=== PATIENT | female | born 1945 | race Caucasian/White ===

== ENCOUNTER → 2017-06-06 08:49 | Outpatient (CLI) | payer MEDICARE, OTHER, SELFPAY ==
--- NOTE | 2017-06-06 08:53 | BI_ITS ---
MAMMOGRAPHY - BILATERAL SCREENING REASON FOR EXAM: Female, 71 years old. Routine annual screening examination. PERTINENT HISTORY: FAM HX OF MOTHER @ AGE 52 TECHNIQUE: Digital bilateral breast jasmina (3D mammographic acquisition) in the CC and MLO projections. 2-D mediolateral oblique (MLO) and craniocaudad (CC) views of both breasts were obtained. CAD: Full Field Digital Mammography with Computer Added Detection was performed. COMPARISON: Apr 14 2016 9:40am. FINDINGS: Breast Composition: The breasts are heterogeneously dense, which may obscure small masses. There are no dominant masses or suspicious calcifications. No other significant abnormalities are identified. BI/SCREENING MAMM (CAD), BILAT IMPRESSION: Stable bilateral screening mammogram. Yearly follow-up mammogram recommended. (A) ASSESSMENT CATEGORY: BIRADS Category 2: Benign. A letter regarding these results will be sent to the patient by the facility within 30 days. Approximately 10% of breast cancers are not detected by mammography. A normal mammogram should not delay biopsy of a clinically suspicious abnormality. [id number] Electronically Signed: Maisha Dumont MD at 16:28 EDT Tel , Service support ,
--- NOTE | 2017-06-06 08:55 | BD_ITS ---
STUDY: DUAL ENERGY X-RAY ABSORPTIOMETRY / DXA REASON FOR EXAM: Female, 71 years old. Postmenopausal female. History of hormone therapy. Patient taking Boniva. TECHNIQUE: Bone Mineral Density (BMD) measurements of lumbar spine and bilateral hips were obtained. COMPARISON: None. FINDINGS: Lumbar Spine (L1-L4): g/cm2 (1.112) / T-score (-0.6) / Z-score (1.1) Findings are suggestive of normal bone density with a low fracture risk. Left Femur Total: g/cm2 (0.784) / T-score (-1.8) / Z-score (-0.3) Left Femoral Neck: g/cm2 (0.722) / T-score (-2.3) / Z-score (-0.6) Right Femur Total: g/cm2 (0.715) / T-score (-2.3) / Z-score (-0.8) Right Femoral Neck: g/cm2 (0.710) / T-score (-2.4) / Z-score (-0.7) BD/Dexa Bone Density Study IMPRESSION: The patient is considered osteopenic as outlined below according to World [employer] Organization (WHO) criteria with a moderate fracture risk. Reference Information: The T-score is the number of standard deviations above or below the standard which is normal for young adults at their peak bone mineral density. The World Health Organization (WHO) interprets the T-scores as follows: Above -1 Normal bone density Between -1 and -2.5 Osteopenia Equal to / or below -2.5 Osteoporosis As a practical clinical guideline, osteopenia may be graded as follows: Mild -1 through -1.5 Moderate -1.6 through -2.0 Severe -2.1 through -2.4 The Z-score is the number of standard deviations above or below age-matched controls. A Z-score of less than -1.5 would be considered abnormal. References: 1. NIH Osteoporosis and Related Bone Diseases http://www.osteo.org 2. International Society for Clinical Densitometry http://www.iscd.org 3. National Osteoporosis Foundation http://www.nof.org Electronically Signed: Ignacio Phelps DO at 9:00 EDT Tel [phone], Service support ,
== END ==
PROVIDERS: Family Provider Family Medicine; PCP Family Medicine; Visit Provider Family Medicine
DX: Z12.31 Encounter for screening mammogram for malignant neoplasm of breast (principal); M81.0 Age-related osteoporosis without current pathological fracture
CPT/HCPCS: 77063; 77067; 77080

== ENCOUNTER → 2018-06-12 07:39 | Outpatient (CLI) | payer MEDICARE, OTHER, SELFPAY ==
--- NOTE | 2018-06-12 07:49 | BI_ITS ---
MAMMOGRAPHY - BILATERAL SCREENING REASON FOR EXAM: Female, 72 years old. Routine annual screening examination. PERTINENT HISTORY: Mother with breast cancer. Aunt with breast cancer. TECHNIQUE: Digital bilateral breast jasmina (3D mammographic acquisition) in the CC and MLO projections. 2-D mediolateral oblique (MLO) and craniocaudad (CC) views of both breasts were obtained. CAD: Full Field Digital Mammography with Computer Added Detection was performed. COMPARISON: Comparison is made with prior study dated June 06, 2017 and April 14, 2016. FINDINGS: Breast Composition: The breasts are heterogeneously dense, which may obscure small masses. There are no dominant masses or suspicious calcifications. No other significant abnormalities are identified. There has been no significant change since the prior study. BI/SCREENING MAMM (CAD), BILAT IMPRESSION: Stable bilateral screening mammogram. Yearly follow-up mammogram recommended. (A) ASSESSMENT CATEGORY: BIRADS Category 1: Negative. A letter regarding these results will be sent to the patient by the facility within 30 days. Approximately 10% of breast cancers are not detected by mammography. A normal mammogram should not delay biopsy of a clinically suspicious abnormality. [id number] Electronically Signed: Teddy Tolbert, at 8:50 EDT , Service support ,
== END ==
PROVIDERS: Family Provider Family Medicine; PCP Family Medicine; Referring Provider Family Medicine; Visit Provider Family Medicine
DX: Z12.31 Encounter for screening mammogram for malignant neoplasm of breast (principal)
CPT/HCPCS: 77063; 77067

== ENCOUNTER → 2019-06-16 13:03 | Outpatient (CLI) | payer MEDICARE, OTHER, SELFPAY ==
--- NOTE | 2019-06-16 13:08 | BI_ITS ---
MAMMOGRAPHY - BILATERAL SCREENING REASON FOR EXAM: Female, 73 years old. Routine annual screening examination. PERTINENT HISTORY: Mother with breast cancer. Aunt with breast cancer. TECHNIQUE: Digital bilateral breast german (3D mammographic acquisition) in the CC and MLO projections. 2-D mediolateral oblique (MLO) and craniocaudad (CC) views of both breasts were obtained. CAD: Full Field Digital Mammography with Computer Added Detection was performed. COMPARISON: Comparison is made with prior study dated June 12, 2018 and June 06, 2017. FINDINGS: Breast Composition: The breasts are heterogeneously dense, which may obscure small masses. There are no dominant masses or suspicious calcifications. No other significant abnormalities are identified. There has been no significant change since the prior study. BI/SCREEN MAMM (CAD) W/GERMAN BILAT IMPRESSION: Stable bilateral screening mammogram. Yearly follow-up mammogram recommended. (A) ASSESSMENT CATEGORY: BIRADS Category 1: Negative. A letter regarding these results will be sent to the patient by the facility within 30 days. Approximately 10% of breast cancers are not detected by mammography. A normal mammogram should not delay biopsy of a clinically suspicious abnormality. [id number] Electronically Signed: Teddy Tolbert, at 13:52 EDT , Service support ,
== END ==
PROVIDERS: PCP Family Medicine; Referring Provider Family Medicine; Visit Provider Family Medicine
DX: Z12.31 Encounter for screening mammogram for malignant neoplasm of breast (principal)
CPT/HCPCS: 77063; 77067

== ENCOUNTER → 2020-06-17 09:49 | Outpatient (CLI) | payer MEDICARE, OTHER, SELFPAY ==
--- NOTE | 2020-06-17 09:55 | BI_ITS ---
MAMMOGRAPHY - BILATERAL SCREENING REASON FOR EXAM: Female, 74 years old. Routine annual screening examination. PERTINENT HISTORY: Mother with breast cancer. Aunt with breast cancer. TECHNIQUE: Digital bilateral breast german (3D mammographic acquisition) in the CC and MLO projections. 2-D mediolateral oblique (MLO) and craniocaudad (CC) views of both breasts were obtained. CAD: Full Field Digital Mammography with Computer Added Detection was performed. COMPARISON: Comparison is made with prior study dated 06/16/2019 and 06/12/2018. FINDINGS: Breast Composition: The breasts are heterogeneously dense, which may obscure small masses. There are no dominant masses or suspicious calcifications. No other significant abnormalities are identified. There has been no significant change since the prior study. BI/SCRN MAMM (CAD)W/GERMAN BILAT IMPRESSION: Stable bilateral screening mammogram. Yearly follow-up mammogram recommended. (A) ASSESSMENT CATEGORY: BIRADS Category 1: Negative. A letter regarding these results will be sent to the patient by the facility within 30 days. Approximately 10% of breast cancers are not detected by mammography. A normal mammogram should not delay biopsy of a clinically suspicious abnormality. [id number] Electronically Signed: Teddy Tolbert MD at 10:39 EDT , Service support ,
== END ==
PROVIDERS: PCP Family Medicine; Referring Provider Family Medicine; Visit Provider Family Medicine
DX: Z12.31 Encounter for screening mammogram for malignant neoplasm of breast (principal); Z80.3 Family history of malignant neoplasm of breast
CPT/HCPCS: 77063; 77067

== ENCOUNTER → 2021-07-25 | Outpatient (CLI) | payer MEDICARE, OTHER, SELFPAY ==
--- NOTE | 2021-07-25 09:08 | BI_ITS ---
MAMMOGRAPHY - BILATERAL SCREENING REASON FOR EXAM: Female, 75 years old. Routine annual screening examination. PERTINENT HISTORY: Mother with breast cancer. Aunt with breast cancer. TECHNIQUE: Digital bilateral breast german (3D mammographic acquisition) in the CC and MLO projections. 2-D mediolateral oblique (MLO) and craniocaudad (CC) views of both breasts were obtained. CAD: Full Field Digital Mammography with Computer Added Detection was performed. COMPARISON: Screening mammogram from 06/17/2020, 06/16/2019, 06/12/2018, 06/06/2017. FINDINGS: Breast Composition: The breasts are heterogeneously dense, which may obscure small masses. There are no dominant masses or suspicious calcifications. No other significant abnormalities are identified. There has been no significant change since the prior study. BI/SCRN MAMM (CAD)W/GERMAN BILAT IMPRESSION: Stable bilateral screening mammogram. Yearly follow-up mammogram recommended. (A) ASSESSMENT CATEGORY: BIRADS Category 1: Negative. A letter regarding these results will be sent to the patient by the facility within 30 days. Approximately 10% of breast cancers are not detected by mammography. A normal mammogram should not delay biopsy of a clinically suspicious abnormality. [id number] Electronically Signed: Benja Grimm, at 11:11 EDT ,
== END | disposition home or self-care (01) ==
PROVIDERS: PCP Family Medicine; Visit Provider Family Medicine
DX: Z12.31 Encounter for screening mammogram for malignant neoplasm of breast (principal)
CPT/HCPCS: 77063; 77067

== ENCOUNTER → 2022-08-09 | Outpatient (CLI) | payer MEDICARE, OTHER, SELFPAY ==
--- NOTE | 2022-08-09 10:46 | BI_ITS ---
MAMMOGRAPHY - BILATERAL SCREENING REASON FOR EXAM: Female, 76 years old. Routine annual screening examination. PERTINENT HISTORY: Mother with breast cancer. Aunt with breast cancer. TECHNIQUE: Digital bilateral breast german (3D mammographic acquisition) in the CC and MLO projections. 2-D mediolateral oblique (MLO) and craniocaudad (CC) views of both breasts were obtained. CAD: Full Field Digital Mammography with Computer Added Detection was performed. COMPARISON: Comparison is made with prior study dated July 25, 2021 and June 17, 2020. FINDINGS: Breast Composition: The breasts are heterogeneously dense, which may obscure small masses. There are no dominant masses or suspicious calcifications. No other significant abnormalities are identified. There has been no significant change since the prior study. BI/SCRN MAMM (CAD)W/GERMAN BILAT IMPRESSION: Stable bilateral screening mammogram. Yearly follow-up mammogram recommended. (A) ASSESSMENT CATEGORY: BIRADS Category 1: Negative. A letter regarding these results will be sent to the patient by the facility within 30 days. Approximately 10% of breast cancers are not detected by mammography. A normal mammogram should not delay biopsy of a clinically suspicious abnormality. [id number] Electronically Signed: Teddy Tolbert MD at 11:27 EDT ,
== END | disposition home or self-care (01) ==
LOC: OPBI 10:44
PROVIDERS: PCP Registered Nurse; Referring Provider Registered Nurse; Visit Provider Registered Nurse
DX: Z12.31 Encounter for screening mammogram for malignant neoplasm of breast (principal)
CPT/HCPCS: 77063; 77067

== ENCOUNTER → 2023-09-06 | Outpatient (CLI) | payer MEDICARE, OTHER, SELFPAY ==
--- NOTE | 2023-09-06 09:09 | BI_ITS ---
MAMMOGRAPHY - BILATERAL SCREENING REASON FOR EXAM: Female, 77 years old. Routine annual screening examination. PERTINENT HISTORY: Mother with breast cancer. Aunt with breast cancer. TECHNIQUE: Digital bilateral breast german (3D mammographic acquisition) in the CC and MLO projections. 2-D mediolateral oblique (MLO) and craniocaudad (CC) views of both breasts were obtained. CAD: Full Field Digital Mammography with Computer Added Detection was performed. COMPARISON: Comparison is made with prior study dated August 09, 2022 and July 25, 2021. FINDINGS: Breast Composition: The breasts are heterogeneously dense, which may obscure small masses. There are no dominant masses or suspicious calcifications. No other significant abnormalities are identified. There has been no significant change since the prior study. BI/SCRN MAMM (CAD)W/GERMAN BILAT IMPRESSION: Stable bilateral screening mammogram. Yearly follow-up mammogram recommended. (A) ASSESSMENT CATEGORY: BIRADS Category 1: Negative. A letter regarding these results will be sent to the patient by the facility within 30 days. Approximately 10% of breast cancers are not detected by mammography. A normal mammogram should not delay biopsy of a clinically suspicious abnormality. [id number] Electronically Signed: Teddy Tolbert MD at 9:54 EDT ,
== END | disposition home or self-care (01) ==
PROVIDERS: PCP Registered Nurse; Referring Provider Registered Nurse; Visit Provider Registered Nurse
DX: Z12.31 Encounter for screening mammogram for malignant neoplasm of breast (principal); Z80.3 Family history of malignant neoplasm of breast
CPT/HCPCS: 77063; 77067

== ENCOUNTER → 2024-04-02 | Outpatient (CLI) | payer MEDICARE, OTHER, SELFPAY ==
[2024-04-02 13:29] LABS: CRP < 3.00 mg/L (0.0-3.0)
[2024-04-04 04:07] LABS: Endomysial Antibody IgA Negative (Negative); Immunoglobulin A 211 mg/dL (64-422); t-Transglutaminase IgA <2 U/mL (0-3)
== END | disposition home or self-care (01) ==
LOC: MTLAB 10:32
PROVIDERS: PCP Registered Nurse; Referring Provider Internal Medicine Gastroenterology; Visit Provider Internal Medicine Gastroenterology
DX: R19.7 Diarrhea, unspecified (principal)
CPT/HCPCS: 36415; 82784; 83516; 86140; 86255

== ENCOUNTER → 2024-04-07 | Outpatient (CLI) | payer MEDICARE, OTHER, SELFPAY ==
[2024-04-10 15:08] LABS: Pancreatic Elastase, Fecal 361 (>200)
[2024-04-11 19:08] LABS: Calprotectin, Stool 103 ug/g (0-120); Fats, Neutral Increased (.); Fats, Total Increased (.)
== END | disposition home or self-care (01) ==
LOC: MTLAB 10:15
PROVIDERS: PCP Registered Nurse; Referring Provider Internal Medicine Gastroenterology; Visit Provider Internal Medicine Gastroenterology
DX: R19.7 Diarrhea, unspecified (principal)
CPT/HCPCS: 82653; 82705; 83993

== ENCOUNTER → 2024-10-08 | Outpatient (CLI) | payer MEDICARE, OTHER, SELFPAY ==
--- NOTE | 2024-10-08 09:52 | BI_ITS ---
EXAM: SCRN MAMM (CAD)W/GERMAN BILAT DATE: 10/08/2024 CLINICAL HISTORY: F, Age 78 y/o , SCREENING Mother with breast cancer. Aunt with breast cancer. TECHNIQUE: Procedure Code: [id number] Modality: MG Procedure: SCRN MAMM (CAD)W/GERMAN BILAT COMPARISON: Prior exam(s) dated September 06, 2023.. FINDINGS: TISSUE DENSITY: The breasts are heterogeneously dense, which may obscure small masses. Bilateral Breast Mammographic Findings: No significant masses, calcifications or other abnormalities are identified. No suspicious masses, areas of developing architectural distortion, or suspicious calcifications. There has been no significant interval change. BI/SCRN MAMM (CAD)W/GERMAN BILAT IMPRESSION: Stable bilateral screening mammogram. OVERALL FINAL ASSESSMENT BI-RADS 1: NEGATIVE. RECOMMENDATION: Routine annual follow-up in 1 Year A letter with findings and recommendations will be mailed to the patient. Reading Location: [place] [id number]
--- OUTSIDE RECORDS SUMMARY | 2024-10-08 19:49 | XMS RPT_ITS | CCD ---
Author Organization [facility] Care Team Providers Care Metropolitan Editor Name Role Phone ELADIO CLARK Unavailable Unavailable Zografakis, Yaima Attending Unavailable Naumoff, Justin Referring Unavailable Naumoff, Justin Primary Care Unavailable Zografakis, Yaima Attending Unavailable Naumoff, Justin Referring Unavailable Naumoff, Justin Primary Care Unavailable Zografakis, Yaima Attending Unavailable Naumoff, Justin Referring Unavailable Naumoff, Justin Primary Care Unavailable Zografakis, Yaima Attending Unavailable Naumoff, Justin Referring Unavailable Naumoff, Justin Primary Care Unavailable GERDA CHLORINATION OPERATOR-KENO WRITER/RUNNER, DARLENE A Primary Care Physi prosper GERDA CHLORINATION OPERATOR-KENO WRITER/RUNNER, DARLENE A Attending Un available GERDA CHLORINATION OPERATOR-KENO WRITER/RUNNER, DARLENE A Primary Care Un available GERDA CHLORINATION OPERATOR-KENO WRITER/RUNNER, DARLENE A Attending Un available GERDA CHLORINATION OPERATOR-KENO WRITER/RUNNER, DARLENE A Primary Care Un available GERDA CHLORINATION OPERATOR-KENO WRITER/RUNNER, DARLENE A Attending Un available GERDA CHLORINATION OPERATOR-KENO WRITER/RUNNER, DARLENE A Primary Care Un available GERDA CHLORINATION OPERATOR-KENO WRITER/RUNNER, DARLENE A Attending Un available GERDA CHLORINATION OPERATOR-KENO WRITER/RUNNER, DARLENE A Primary Care Un available GERDA CHLORINATION OPERATOR-KENO WRITER/RUNNER, DARLENE A Attending Un available GERDA CHLORINATION OPERATOR-KENO WRITER/RUNNER, DARLENE A Primary Care Un available Gerda HAT CONDITIONER-C, Darlene Primary Care Provider Blair PICKARD, Dr. Hadley Attending Provider Dr. Jomar Pinto MD Referring Provider GERDA CHLORINATION OPERATOR-KENO WRITER/RUNNER, DARLENE A Attending Un available GERDA CHLORINATION OPERATOR-KENO WRITER/RUNNER, DARLENE A Primary Care Un available GERDA CHLORINATION OPERATOR-KENO WRITER/RUNNER, DARLENE A Primary Care Un available YOEL CORRAL Attending Unavailable EDVIN IGLESIAS DO Attending Unavailable GERDA CHLORINATION OPERATOR-KENO WRITER/RUNNER, DARLENE A Primary Care Un available SONI PICKARD, DR HERNANDEZ Attending Unavailabl e GERDA CHLORINATION OPERATOR-KENO WRITER/RUNNER, DARLENE A Primary Care Un available GERDA CHLORINATION OPERATOR-KENO WRITER/RUNNER, DARLENE A Attending Un available GERDA CHLORINATION OPERATOR-KENO WRITER/RUNNER, DARLENE A Primary Care Un available GERDA CHLORINATION OPERATOR-KENO WRITER/RUNNER, DARLENE A Attending Un available GERDA CHLORINATION OPERATOR-KENO WRITER/RUNNER, DARLENE A Primary Care Un available Gerda HAT CONDITIONER, Darlene Primary Care Unavailabl e Jabour, Vincent Referring Unavailable Jabour, Vincent Attending Unavailable Gerda HAT CONDITIONER, Darlene Primary Care Unavailabl e Jabour, Vincent Referring Unavailable Jabour, Vincent Attending Unavailable Gerda HAT CONDITIONER, Darlene Attending Unavailabl e Gerda HAT CONDITIONER, Darlene Primary Care Unavailabl e Gerda HAT CONDITIONER, Darlene Referring Unavailabl e Allergies Allergy Classification Reported Allergen(s) Allergy Type Date of Onset Reaction(s) Facility Penicillins (antibiotic) (1 source) Penicillin; Translations: [penicillins] Drug Allergy [facility] [place] [facility] Sulfonamides (antibiotic) (1 source) Sulfonamide; Translations: [sulfa drugs] Drug Allergy [facility] [place] [facility] Tetracyclines (antibiotic) (1 source) Tetracycline; Translations: [tetracycline] Drug Allergy Rash [facility] (1 source) Penicillins; Translations: [PENICILLINS] Propensity to adverse reactions [facility] drug [facility] Sulfonamides (Antibiotic); Translations: [SULFA (SULFONAMIDE ANTIBIOTICS)] Propensity to adverse reactions to drug [facility] (9 sources) Penicillin; Translations: [penicillins] Drug Allergy [facility] [place] [facility] (4 sources) Sulfonamides (Antibiotic); Translations: [sulfa drugs] Drug allergy [facility] [place] [facility] (10 sources) Tetracycline; Translations: [tetracycline] Drug Allergy Rash [facility] (6 sources) Sulfonamide; Translations: [sulfa drugs] Drug allergy [facility] [place] [facility] (1 source) Penicillin; Translations: [penicillins] Drug Allergy [facility] [place] [facility] Medications Current Medications Medication Drug Class(es) Dates Sig (Normalized) Sig (Original) 200 actuat albuterol 0.09 mg/actuat dry powder inhaler (1 source) beta2-Adrenergic Agonist Start: 06-13-2024 take 1 puff(s) by inhalation every four hours as needed for wheezing albuterol 90 mcg/inh inhalation powder 1 puff(s), Inhalation, q4h, PRN as needed for shortness of breath or wheezing, # 1 EA, 0 Refill(s), Pharmacy: [facility]/pharmacy #[id number], 151, cm, 06/13/24 14:27:00 EDT, Height, kg, 06/13/24 14:27:00 EDT, Dosing Weight Start Date: 06/13/24 Status: Ordered Quantity: 1.0 Unit: EA Repeat number: 1 alendronic acid 35 mg oral tablet (2 sources) Bisphosphonate Start: 05-12-2021 take 1 tablet by mouth every week alendronate 35 mg oral tablet See Instructions, TAKE 1 TABLET BY MOUTH ONCE A WEEK, # 12 tab(s), 4 Refill(s), Pharmacy: [facility]/pharmacy #[id number], 154, cm, 12/09/20 9:37:00 EDT, Height, kg, 12/09/20 9:37:00 EDT, Dosing Weight Start Date: 05/12/21 Status: Ordered sugar-free cholestyramine resin 4000 mg powder for oral suspension (11 sources) Bile Acid Sequestrant Start: 11-28-2018 take 4 doses by mouth once daily Prevalite Packets 4 g/5.5 g oral powder for reconstitution Dose : 4 gram(s) =, Oral, Daily, # 60 EA, 0 Refill(s) Start Date: 11/28/18 Status: Ordered Quantity: 60.0 Unit: EA Repeat number: 1 Start: 11-28-2018 take 4 doses by mout h once daily Prevalite Packets 4 g/5.5 g oral powder for reconstitution Dose : 4 gram(s) =, Oral, Daily, # 60 EA, 0 Refill(s) Start Date: 11/28/18 Status: Ordered hydrOXYzine hydrochloride 25 mg oral tablet (3 sources) Antihistamine Start: 12-18-2022 End: 03-29-2023 hydrOXYzine hydrochloride 25 mg oral tablet Dose : 25 mg = 1 tab(s), Oral, Daily, X 30 day(s), # 30 tab(s), 2 Refill(s), 03/29/23 5:59:00 PM EST, Pharmacy: [facility]/pharmacy #[id number], Anxiety, 155, cm, 12/18/22 11:14:00 EST, Height, kg, 12/18/22 11:14:00 EST, Dosing Weight Start Date: 12/29/22 Stop Date: 03/29/23 Status: Ordered magnesium oxide 250 mg oral tablet (2 sources) Start: 12-10-2019 take 1 mg by mouth once daily Magnesium 250 mg tablet mg = tab(s), Oral, qDay, 0 Refill(s) Start Date: 12/10/19 Status: Ordered Multivitamin preparation (5 sources) Start: 12-18-2022 take 1 tablet by mouth once daily Multivitamin Dose = 1 tab(s), Oral, Daily, 0 Refill(s) Start Date: 12/18/22 Status: Ordered nitrofurantoin, macrocrystals 25 mg / nitrofurantoin, monohydrate 75 mg oral capsule (1 source) Nitrofuran Antibacterial Start: 10-05-2021 End: 10-10-2021 nitrofurantoin macrocrystals-monoh ydrate 100 mg oral capsule Dose : 100 mg = 1 cap(s), Oral, BID, Take with food, X 5 day(s), # 10 cap(s), 0 Refill(s), 10/10/21 13:38:00 EDT, Pharmacy: [facility]/pharmacy #[id number], 155, cm, 10/03/21 13:00:00 EDT, Height, 47.4 Start Date: 10/05/21 Stop Date: 10/10/21 Status: Ordered omeprazole 40 mg delayed release oral capsule (11 sources) Proton Pump Inhibitor Start: 12-18-2022 End: 11-17-2024 omeprazole 40 mg oral delayed release capsule Dose : 40 mg = 1 cap(s), Oral, qDay, # 90 cap(s), 3 Refill(s), [id number], GERD (gastroesophageal reflux disease), 155, cm, 11/23/23 16:41:00 EDT, Height, kg, 11/23/23 16:41:00 EDT, Dosing Weight Start Date: 11/23/23 Stop Date: 11/17/24 Status: Ordered Quantity: 90.0 Unit: cap(s) Repeat number: 4 Indications: Gastro-esophageal reflux disease without esophagitis; Start: 06-03-2021 omeprazole 40 mg oral delayed release capsule Dose : 40 mg = 1 cap(s), Oral, qDay, # 30 cap(s), 11 Refill(s), [id number], 154, cm, 12/09/20 9:37:00 EDT, Height Start Date: 06/03/21 Status: Ordered simvastatin 20 mg oral tablet (2 sources) HMG-CoA Reductase Inhibitor Start: 05-12-2021 End: 05-07-2022 simvastatin 20 mg oral tablet Dose : 20 mg = 1 tab(s), Oral, qHS, # 90 tab(s), 3 Refill(s), [id number], 154, cm, 12/09/20 9:37:00 EDT, Height, kg, 12/09/20 9:37:00 EDT, Dosing Weight Start Date: 05/12/21 Stop Date: 05/07/22 Status: Ordered Vitamin D2 1.25 mg (50,000 intl units) oral capsule (1 source) Start: 04-04-2024 End: 03-30-2025 take 1 capsule by mouth once, then take 1 capsule by mouth every week Vitamin D2 1.25 mg (50,000 intl units) oral capsule Dose : 50,000 International_Unit = 1 cap(s), Oral, qWeek, # 13 cap(s), 3 Refill(s), Pharmacy: [facility]/pharmacy #[id number], Osteoporosis Vitamin D deficiency, 155, cm, 12/21/23 8:58:00 EST, Height, kg, 12/21/23 8:58:00 EST, Dosing Weight Start Date: 04/04/24 Stop Date: 03/30/25 Status: Ordered Quantity: 13.0 Unit: cap(s) Repeat number: 4 Indications: Vitamin D deficiency, unspecified; Age-related osteoporosis without current pathological fracture; Vitamin D3 (2 sources) Start: 12-10-2019 Vitamin D3 qDa y, 0 Refill(s) Start Date: 12/10/19 Status: Ordered Completed/Discontinued Medications Medication Drug Class(es) Dates Sig (Normalized) Sig (Original) 1 ml denosumab 60 mg/ml prefilled syringe (8 sources) RANK Ligand Inhibitor Start: 07-29-2024 End: 07-31-2024 Prolia 60 mg/mL subcutaneous solution Dose : 60 mg = 1 mL, Subcutaneous, q6mo, dx: M81.0 osteoporosis, # 1 mL, 1 Refill(s), Osteoporosis Start Date: 07/29/24 Stop Date: 07/31/24 Status: Ordered Quantity: 1.0 Unit: mL Repeat number: 2 Indications: Age-related osteoporosis without current pathological fracture; Start: 01-07-2024 End: 01-09-2024 Prolia 60 mg/mL subcutaneous solution Dose : 60 mg = 1 mL, Subcutaneous, q6mo, dx: M81.0 osteoporosis, # 1 mL, 1 Refill(s), Osteoporosis Start Date: 01/07/24 Stop Date: 01/09/24 Status: Ordered Quantity: 1.0 Unit: mL Repeat number: 2 Indication: Age-related osteoporosis without current pathological fracture Start: 06-29-2023 End: 07-01-2023 Prolia 60 mg/mL subcutaneous solution Dose : 60 mg = 1 mL, Subcutaneous, q6mo, dx: M81.0 osteoporosis, # 1 mL, 1 Refill(s), Osteoporosis, 155, cm, 06/01/23 10:01:00 EDT, Height, kg, 06/01/23 10:01:00 EDT, Dosing Weight Start Date: 06/29/23 Stop Date: 07/01/23 Status: Ordered Start: 01-01-2023 End: 01-03-2023 Prolia 60 mg/mL subcutaneous solution Dose : 60 mg = 1 mL, Subcutaneous, q6mo, dx: M81.0 osteoporosis, # 1 mL, 1 Refill(s), Pharmacy: [facility]/pharmacy #[id number], Osteoporosis, 155, cm, 12/18/22 11:14:00 EST, Height, kg, 12/18/22 11:14:00 EST, Dosing Weight Start Date: 01/01/23 Stop Date: 01/03/23 Status: Ordered ondansetron 4 mg disintegrating oral tablet (6 sources) Serotonin-3 Receptor Antagonist Start: 12-24-2023 End: 03-23-2024 ondansetron 4 mg oral tablet, disintegrating Dose : 4 mg = 1 tab(s), Oral, q8h, TAKE 1 TABLET BY MOUTH EVERY 8 HOURS NEEDED FOR NAUSEA/VOMITING., # 30 tab(s), 2 Refill(s), Pharmacy: [facility]/pharmacy #[id number], 155, cm, 12/21/23 8:58:00 EST, Height, kg, 12/21/23 8:58:00 EST, Dosing Weight Start Date: 12/24/23 Stop Date: 03/23/24 Status: Ordered Quantity: 30.0 Unit: tab(s) Repeat number: 3 Start: 12-18-2022 End: 03-18-2023 ondansetron 4 mg oral tablet , disintegrating Dose : 4 mg = 1 tab(s), Oral, TID, PRN Nausea, TAKE 1 TABLET BY MOUTH EVERY 8 HOURS NEEDED FOR NAUSEA/VOMITING, X 30 day(s), # 30 tab(s), 2 Refill(s), 03/18/23 11:42:00 AM EST, Pharmacy: [facility]/pharmacy #[id number], 155, cm, 12/18/22 11:14:00 EST, Height, kg, 12/18/22 11:14:00 EST, Dosing Weight Start Date: 12/18/22 Stop Date: 03/18/23 Status: Ordered predniSONE 10 mg oral tablet (2 sources) Start: 07-06-2021 End: 07-20-2021 take 0.5 tablet by mouth once daily prednisone 10mg tab (TAPER) Taper 60-40-20-10 mg x 3 days then 5mg x 1 day, Oral, Daily, Take 6 tabs daily x 3days, then 4 tabs daily x 3days, then 2 tabs daily x 3days,then 1 tab daily x 3days,then 1/2 tab daily x 2 days, # 40 tab(s), 0 Refill(s), Pharmacy: [facility]/pharmacy #[id number],... Start Date: 07/06/21 Stop Date: 07/20/21 Status: Ordered Problems Active Problems Problem Classification Problem Date Documented Da te Episodic/Chronic Abdominal hernia (13 sources) Diaphragmatic hernia without obstruction or gangrene; Translations: [Hiatal hernia] Onset: 11-28-2017 11-28-2018 Episodic Allergic reactions (6 sources) Allergy status to other drugs, medicaments and biological substances status; Translations: [Allergy status to sulfonamides status] Onset: 11-28-2017 Episodic Biliary tract disease (4 sources) Calculus of gallbladder with chronic cholecystitis without obstruction; Translations: [Cholecystitis, unspecified] Onset: 03-08-2018 Episodic Chronic obstructive pulmonary disease and bronchiectasis (1 source) Bronchitis 06-13-2024 Episodic Deficiency and other anemia (2 sources) Anemia, unspecified; Translations: [Anemia, unspecified] Onset: 03-15-2018 Episodic Deficiency and other anemia (11 sources) Anemia 11-28-2018 Episodic Diabetes mellitus without complication (4 sources) Prediabetes 12-21-2023 Episodic Disorders of lipid metabolism (13 sources) Hyperlipidemia, unspecified; Translations: [Mixed hyperlipidemia] Onset: 03-15-2018 11-28-2018 Chronic Esophageal disorders (2 sources) Gastro-esophageal reflux disease without esophagitis; Translations: [Gastro-esophageal reflux disease without esophagitis] Onset: 11-28-2017 Chronic Nutritional deficiencies (1 source) Vitamin D deficiency 04-04-2024 Chronic Nutritional deficiencies (11 sources) Folic acid deficiency 11-28-2018 Episodic Osteoarthritis (2 sources) Unspecified osteoarthritis, unspecified site; Translations: [Unspecified osteoarthritis, unspecified site] Onset: 03-15-2018 Chronic Osteoporosis (11 sources) Osteoporosis 11-28-2018 Chronic Other acquired deformities (1 source) Scoliosis deformity of spine 05-28-2024 Chronic Other bone disease and musculoskeletal deformities (2 sources) Other specified disorders of bone density and structure, unspecified site; Translations: [Oth disrd of bone density and structure, unspecified site] Onset: 03-15-2018 Episodic Other connective tissue disease (1 source) Recurrent falls 05-28-2024 Episodic Other gastrointestinal disorders (11 sources) Dysphagia 11-28-2018 Episodic Other screening for suspected conditions (not mental disorders or infectious disease) (1 source) Encounter for screening mammogram for malignant neoplasm of breast; Translations: [Encounter for screening mammogram for malignant neoplasm of breast] Onset: 10-03-2024 Episodic Residual codes; unclassified (9 sources) Insomnia 12-18-2022 Episodic Unclassified (10 sources) Patient encounter status 12-18-2022 Past or Other Problems Problem Classification Problem Date Documented Da te Episodic/Chronic Other gastrointestinal disorders (1 source) Diarrhea, unspecified; Translations: [Diarrhea, unspecified] Onset: 04-18-2024 Episodic Residual codes; unclassified (2 sources) Family history of malignant neoplasm of breast; Translations: [Family history of malignant neoplasm of breast] Onset: 11-28-2017 Episodic Superficial injury; contusion (3 sources) Contusion of finger; Translations: [Contusion of unspecified finger without damage to nail, initial encounter] Onset: 11-10-2023 Episodic Results Test Name Value Interpretation Reference Range Facility XR HAND MINIMUM 3 VIEWS LEFT on 05-18-2024 XR HAND MINIMUM 3 VIEWS LEFT ORIGINAL EXAMINATION: THREE XRAY VIEWS OF THE LEFT HAND 05/18/2024 1:10 am COMPARISON: None. HISTORY: ORDERING SYSTEM PROVIDED HISTORY: Reason for Exam: Injury due to a fall Left hand pain and bruising. Swelling at base of left thumb. FINDINGS: The bones are demineralized. There is no acute fracture or dislocation. There is advanced arthritis at the base of the left thumb with narrowing of the 1st carpometacarpal joint and remodeling of the trapezium. Other joints are maintained. There are no erosions. No foreign body is detected. IMPRESSION: 1. No acute fracture or dislocation. 2. Advanced arthritis at the base of the left thumb. Interpreted by: Tanner Stockton MD Preliminary Report By: Tanner Stockton MD Electronically signed By Tanner Stockton MD Dictated Date: 05/18/2024 1:19:23 AM Prelim Date: 05/18/2024 1:21:50 AM Sign Date: 05/18/2024 1:21:50 AM Ordering Provider: YOEL Aguila [facility] XR KNEE THREE VIEWS RIGHTon 05-18-2024 XR KNEE THREE VIEWS RIGHT ORIGINAL EXAMINATION: THREE XRAY VIEWS OF THE RIGHT KNEE 05/18/2024 1:11 am COMPARISON: None. HISTORY: ORDERING SYSTEM PROVIDED HISTORY: Reason for Exam: fall Anterior right knee pain and swelling. FINDINGS: There is no fracture or dislocation of the right knee. There is moderate narrowing of the tibiofemoral and patellofemoral joint spaces. Articular surfaces have normal contour with no sign of fracture. There is no joint effusion. No periarticular calcifications are present. IMPRESSION: 1. No fracture or dislocation. 2. Moderate tricompartmental arthritis. Interpreted by: Tanner Stockton MD Preliminary Report By: Tanner Stockton MD Electronically signed By Tanner Stockton MD Dictated Date: 05/18/2024 1:15:10 AM Prelim Date: 05/18/2024 1:16:44 AM Sign Date: 05/18/2024 1:16:44 AM Ordering Provider: YOEL CORRAL [facility] Calprotectin, Stoolon [address] 103 ug/g Normal 0-120 [facility] Comment on above: Order Comment: Test( s) [id number], Neutral; [id number], Total was developed and its performance characteristics determined by [employer]. It has not been cleared or approved by the Food and Drug Administration. Result Comment: Conc entration Interpretation Follow-Up < 5 - 50 ug/g Normal None >50 -120 ug/g Borderline Re-evaluate in 4-6 weeks >120 ug/g Abnormal Repeat as clinically indicated Performed at: [address] [id number] [employer] Operator: Jomar Rebolledo PhD, Phone: [phone] Performed at: [address] [id number] [employer] Operator: Emily Munoz MD, Phone: [phone] Performed By: #### L 7000.0750, L7000.0700, L7000.0300 #### [facility] [address] [place] [address]. [place], [address] Fecal Fat, Qualitativeon FATS, NEUTRAL Increased Normal . [facility] Comment on above: Order Comment: Test( s) [id number], Neutral; [id number], Total was developed and its performance characteristics determined by [employer]. It has not been cleared or approved by the Food and Drug Administration. Result Comment: Norm al (<60 Droplets/HPF) Performed By: #### L 7000.0750, L7000.0700, L7000.0300 #### [facility] [address] [place], [place], [id number] FATS, TOTAL Increased Normal . [facility] Comment on above: Order Comment: Test( s) [id number], Neutral; [id number], Total was developed and its performance characteristics determined by [employer]. It has not been cleared or approved by the Food and Drug Administration. Result Comment: Norm al (<100 Droplets/HPF) Performed By: #### L 7000.0750, L7000.0700, L7000.0300 #### [facility] [address] [place], [place], [id number] L7000.0750on 04-10-2024 P ELASTASE,FECA 361 Normal >200 [facility] Comment on above: Result Comment: Resu lt Units: ug Elast./g Severe Pancreatic Insufficiency: <100 Moderate Pancreatic Insufficiency: 100 - 200 Normal: >200 Performed at: [address] [id number] [employer] Operator: Emily Munoz MD, Phone: [phone] Performed By: #### L 7000.0750, L7000.0700, L7000.0300 #### [facility] [address] [place], [address] Calprotectin stoolOrdered By : Jomar Pinto on 04-07-2024 Stool Calprotectin 103 ug/g 0-120 [facility] Comment on above: Concentration Interp retation Follow-Up< 5 - 50 ug/g Normal None>50 -120 ug/g Borderline Re-evaluate in 4-6 weeks >120 ug/g Abnormal Repeat as clinically indicatedPerformed at: [address] [id number] Director: Jomar Rebolledo PhD, Phone: [phone] at: [address] [id number] Director: Emily Munoz MD, Phone: [phone] Elastase.pancreatic (Stl) [M ass/Mass]Ordered By: Jomar Pinto on 04-07-2024 Stool Pancreatic Elastase 361 >200 [facility] Comment on above: Result Units: ug [address] st./g Severe Pancreatic Insufficiency: <100 Moderate Pancreatic Insufficiency: 100 - 200 Normal: >200Performed at: [address] [id number] Director: Emily Munoz MD, Phone: [phone] Fat Ql (Stl)Ordered By: Jacky Pinto on 04-07-2024 Stool Total Fats Increased . [facility] Comment on above: Normal (<100 Droplet s/HPF) No Panel InformationOrdered By: Jomar Pinto on 04-07-2024 Stool Neutral Fats Increased . [facility] Comment on above: Normal (<60 Droplets /HPF) Celiac Disease Profileon ENDOMYSIAL IGA Negative Normal Negative [facility] Comment on above: Performed By: #### L 501.6710, L3410.2400 #### [facility] [address] [facility]. [facility] [address] IMMUNOGLOB A QN 211 mg/dL Normal 64-422 [facility] Comment on above: Result Comment: Perf ormed at: [facility] [address] [id number] Burning [employer] Operator: Jomar Rebolledo PhD, Phone: [phone] Performed By: #### L 501.6710, L3410.2400 #### [facility] [address] [facility] [place], [place], [id number] tTG IGA <2 Normal 0-3 [facility] Comment on above: Result Comment: Nega tive 0 - 3 Weak Positive 4 - 10 Positive >10 Tissue Transglutaminase (tTG) has been identified as the endomysial antigen. Studies have demonstr- ated that endomysial IgA antibodies have over 99% specificity for gluten sensitive enteropathy. Performed By: #### L 501.6710, L3410.2400 #### [facility] [address] [place], [address] .Auto Diffon 04-03-2024 Basophil, Absolute 0.0 10 3/mcL Normal 0.0-0.2 [facility] Comment on above: Performed By: #### A 1C, VIDH, CBC, ANEU, ADIFF, GFR, CMP, LIPID ####[address] [place], [place] [address] Basophils/100 WBC (Bld) 0.6 % Normal 0.0-2.5 [facility] Comment on above: Performed By: #### A 1C, VIDH, CBC, ANEU, ADIFF, GFR, CMP, LIPID ####[address] [place], [place] [address] Eosinophil, Absolute 0.1 10 3/mcL Normal 0.0-0.7 [facility] Comment on above: Performed By: #### A 1C, VIDH, CBC, ANEU, ADIFF, GFR, CMP, LIPID ####[address] [place], [place] [address] Eosinophils/100 WBC (Bld) 1.6 % Normal 0.0-7.0 [facility] Comment on above: Performed By: #### A 1C, VIDH, CBC, ANEU, ADIFF, GFR, CMP, LIPID ####[facility] [place], [place] [address] Lymphocyte, Absolute 2.4 10 3/mcL Normal 0.9-4.3 [facility] Comment on above: Performed By: #### A 1C, VIDH, CBC, ANEU, ADIFF, GFR, CMP, LIPID ####[address] [place], [place] [address] Lymphocytes/100 WBC (Bld) 40.6 % High 20.0-40.0 [facility] Comment on above: Performed By: #### A 1C, VIDH, CBC, ANEU, ADIFF, GFR, CMP, LIPID ####[facility] [place], [place] [address] Monocyte, Absolute 0.4 10 3/mcL Normal 0.1-1.4 [facility] Comment on above: Performed By: #### A 1C, VIDH, CBC, ANEU, ADIFF, GFR, CMP, LIPID ####[address] [place], [place] [address] Monocytes/100 WBC (Bld) 7.4 % Normal 2.0-13.0 [facility] Comment on above: Performed By: #### A 1C, VIDH, CBC, ANEU, ADIFF, GFR, CMP, LIPID ####[address] [place], [place] [address] Neutrophils/100 WBC (Bld) 49.8 % Low 50.0-75.0 [facility] Comment on above: Performed By: #### A 1C, VIDH, CBC, ANEU, ADIFF, GFR, CMP, LIPID ####[facility] [place], [place] [address] .GFRon 04-03-2024 Estimated Glomerular Filtration Rate 74 ml/min/1.73sqm Normal [facility] Comment on above: Result Comment: Stages of Chronic Kidney Disease (CKD) Stage Description eGFR(ml/min/1.73 sq.m.) CKD 1 Normal kidney function or >=90 normal kindney function with possible kidney damage (ex. Proteinuria) CKD 2 Kidney damage with mild loss 60-89 of kidney function CKD 3a Mild to moderate loss of kidney 45-59 function CKD 3b Moderate to severe loss of 30-44 of kindey function CKD 4 Severe loss of kidney function 15-29 CKD 5 Kidney failure <15 Note: (go live 2024) the eGFR calculation was updated to the 2020 CKD-EPI creatinine equation without a race factor to calculate the eGFR results. Performed By: #### A 1C, VIDH, CBC, ANEU, ADIFF, GFR, CMP, LIPID ####[place] [id number] [place], [place] [address] .NEUABSon 04-03-2024 Neutrophil, Absolute 2.9 10 3/mcL Normal 2.3-8.1 [facility] Comment on above: Performed By: #### A 1C, VIDH, CBC, ANEU, ADIFF, GFR, CMP, LIPID ####[place] [address] [place], [place] [address] A1Con 04-03-2024 Glucose [Mass/Vol] 117 mg/dL Normal [facility] Comment on above: Result Comment: Roselia mated Average Glucose calculated by equation ((28.7xA1C)-46.7) Estimated average glucose (eAG) is a calculated value from Hemoglobin A1C and is sales development representative of the average blood glucose level in the last 2-3 month period. Normal range: less than 114 mg/dL Performed By: #### H CV1, HBSAB, HBSAG, CCP, RF #### [place] [address] #### ADIFF, ANEU, ANAIFS, GFR, CMP, CRP, ESR, CBC #### [place] [address] [place], [place] [address] HbA1c (Bld) [Mass fraction] 5.7 % Normal 4.3-6.4 [facility] Comment on above: Performed By: #### H CV1, HBSAB, HBSAG, CCP, RF #### [place] [address] #### ADIFF, ANEU, ANAIFS, GFR, CMP, CRP, ESR, CBC #### [address] [address] CBCon 04-03-2024 Erythrocyte distribution width (RBC) [Ratio] 12.7 % Normal 11.5-15.5 [facility] Comment on above: Performed By: #### A 1C, VIDH, CBC, ANEU, ADIFF, GFR, CMP, LIPID ####[address] [place] [place], [place] [address] Hematocrit (Bld) [Volume fraction] 40.4 % Normal 34.0-46.0 [facility] Comment on above: Performed By: #### A 1C, VIDH, CBC, ANEU, ADIFF, GFR, CMP, LIPID ####[place] [place], [place] [address] Hgb 13.6 G/dL Normal 12.0-16.0 [facility] Comment on above: Performed By: #### A 1C, VIDH, CBC, ANEU, ADIFF, GFR, CMP, LIPID ####[facility] [place], [place] [address] MCH (RBC) [Entitic mass] 30.9 pg Normal 27.0-33.0 [facility] Comment on above: Performed By: #### A 1C, VIDH, CBC, ANEU, ADIFF, GFR, CMP, LIPID ####[address] [place], [place] [address] MCHC 33.7 G/dL Normal 32.0-36.0 [facility] Comment on above: Performed By: #### A 1C, VIDH, CBC, ANEU, ADIFF, GFR, CMP, LIPID ####[address] [place], [place] [address] MCV (RBC) [Entitic vol] 91.8 fL Normal 80.0-99.0 [facility] Comment on above: Performed By: #### A 1C, VIDH, CBC, ANEU, ADIFF, GFR, CMP, LIPID ####[id number] [place], [place] [address] Platelet 256 10 3/mcL Normal 150-450 [facility] Comment on above: Performed By: #### A 1C, VIDH, CBC, ANEU, ADIFF, GFR, CMP, LIPID ####[facility] [place], [place] [address] Platelet mean volume (Bld) [Entitic vol] 7.9 fL Normal 6.6-10.5 [facility] Comment on above: Performed By: #### A 1C, VIDH, CBC, ANEU, ADIFF, GFR, CMP, LIPID ####[facility] [place], [place] [address] RBC 4.41 10 6/mcL Normal 4.10-5.30 [facility] Comment on above: Performed By: #### A 1C, VIDH, CBC, ANEU, ADIFF, GFR, CMP, LIPID ####[address] [place], [place] [address] WBC 5.9 10 3/mcL Normal 4.5-10.8 [facility] Comment on above: Performed By: #### A 1C, VIDH, CBC, ANEU, ADIFF, GFR, CMP, LIPID ####[address] [address] CMPon 04-03-2024 Albumin Level 3.7 G/dL Normal 3.4-4.8 [facility] Comment on above: Performed By: #### A 1C, VIDH, CBC, ANEU, ADIFF, GFR, CMP, LIPID ####[place] [id number] Albumin/Globulin [Mass ratio] 1.2 {ratio} Normal 1.1-2.5 [facility] Comment on above: Performed By: #### A 1C, VIDH, CBC, ANEU, ADIFF, GFR, CMP, LIPID ####[address] [place], [place] [address] ALP [Catalytic activity/Vol] 91 U/L Normal 40-135 [facility] Comment on above: Performed By: #### A 1C, VIDH, CBC, ANEU, ADIFF, GFR, CMP, LIPID ####[address] [address] ALT [Catalytic activity/Vol] 25 U/L Normal 14-59 [facility] Comment on above: Performed By: #### A 1C, VIDH, CBC, ANEU, ADIFF, GFR, CMP, LIPID ####[place] [id number] AST [Catalytic activity/Vol] 19 U/L Normal 10-40 [facility] Comment on above: Performed By: #### A 1C, VIDH, CBC, ANEU, ADIFF, GFR, CMP, LIPID ####[place] [id number] Bili Total 0.3 mg/dL Normal 0.2-1.0 [facility] Comment on above: Result Comment: Use of this assay is not recommended for patients undergoing treatment with eltrombopag due to the potential for falsely elevated results. Performed By: #### A 1C, VIDH, CBC, ANEU, ADIFF, GFR, CMP, LIPID ####[facility] [place], [place] [address] BUN/Creatinine Ratio 15 ratio Normal 7-27 [facility] Comment on above: Performed By: #### A 1C, VIDH, CBC, ANEU, ADIFF, GFR, CMP, LIPID ####[address] [place] [place], [place] [address] Calcium [Mass/Vol] 8.6 mg/dL Normal 8.4-10.2 [facility] Comment on above: Performed By: #### A 1C, VIDH, CBC, ANEU, ADIFF, GFR, CMP, LIPID ####[place] [address] Chloride [Moles/Vol] 105 mmol/L Normal 98-107 [facility] Comment on above: Performed By: #### A 1C, VIDH, CBC, ANEU, ADIFF, GFR, CMP, LIPID ####[place] [address] CO2 [Moles/Vol] 30 mmol/L Normal 23-31 [facility] Comment on above: Performed By: #### A 1C, VIDH, CBC, ANEU, ADIFF, GFR, CMP, LIPID ####[place] [address] Creatinine [Mass/Vol] 0.82 mg/dL Normal 0.55-1.02 [facility] Comment on above: Result Comment: Test ing performed on Siemens Dimension EXL analyzer using a modified kinetic Ochoa technique. Performed By: #### A 1C, VIDH, CBC, ANEU, ADIFF, GFR, CMP, LIPID ####[address] [place] [place] [address] Electrolyte Balance 6.0 mEq/L Normal 4.0-15.0 [facility] Comment on above: Performed By: #### A 1C, VIDH, CBC, ANEU, ADIFF, GFR, CMP, LIPID ####[address] [place] [address] [place] [address] Globulin 3.0 G/dL Normal 1.5-3.8 [facility] Comment on above: Performed By: #### A 1C, VIDH, CBC, ANEU, ADIFF, GFR, CMP, LIPID ####[place] [place], [place] [address] Glucose [Mass/Vol] 97 mg/dL Normal 83-110 [facility] Comment on above: Performed By: #### A 1C, VIDH, CBC, ANEU, ADIFF, GFR, CMP, LIPID ####[place] [place], [place] [address] Potassium [Moles/Vol] 4.0 mmol/L Normal 3.5-5.1 [facility] Comment on above: Performed By: #### A 1C, VIDH, CBC, ANEU, ADIFF, GFR, CMP, LIPID ####[address] [place] [place], [place] [address] Sodium [Moles/Vol] 141 mmol/L Normal 136-145 [facility] Comment on above: Performed By: #### A 1C, VIDH, CBC, ANEU, ADIFF, GFR, CMP, LIPID ####[address] [place] [place], [place] [address] Total Protein 6.7 G/dL Normal 6.4-8.2 [facility] Comment on above: Performed By: #### A 1C, VIDH, CBC, ANEU, ADIFF, GFR, CMP, LIPID ####[address] [place] [place], [place] [address] Urea nitrogen [Mass/Vol] 12 mg/dL Normal 7-18 [facility] Comment on above: Performed By: #### A 1C, VIDH, CBC, ANEU, ADIFF, GFR, CMP, LIPID ####[address] [place] [place], [place] [address] LABORATORYOrdered By: SYSTEM SYSTEM on 04-03-2024 25-hydroxyvitamin D3 [Mass/Vol] 16.9 ng/mL Invalid Interpretation Code AO ADM SS Comment on above: Interpretive Data: I nterpretive Values Based on Total 25(OH) Vitamin D: Deficient <20 ng/mL Insufficient 20 - <30 ng/mL Sufficient 30-100 ng/mL Albumin BCP dye [Mass/Vol] 3.7 G/dL Normal 3.4 - 4.8 G/dL AO ADM SS Albumin/Globulin [Mass ratio] 1.2 {ratio} Normal 1.1 - 2.5 ratio AO ADM SS ALP [Catalytic activity/Vol] 91 U/L Normal 40 - 135 U/L AO ADM SS ALT With P-5'-P [Catalytic activity/Vol] 25 U/L Normal 14 - 59 U/L AO ADM SS AST With P-5'-P [Catalytic activity/Vol] 19 U/L Normal 10 - 40 U/L AO ADM SS Basophils (Bld) [#/Vol] 0.0 103/mcL Normal 0.0 - 0.2 10^3/mcL AO Workflow SS Basophils/100 WBC (Bld) 0.6 % Normal 0.0 - 2.5 % AO Workflow SS Bilirubin [Mass/Vol] 0.3 mg/dL Normal 0.2 - 1 .0 mg/dL AO ADM SS Comment on above: Interpretive Data: U se of this assay is not recommended for patients undergoing treatment with eltrombopag due to the potential for falsely elevated results. Calcium [Mass/Vol] 8.6 mg/dL Normal 8.4 - 10. 2 mg/dL AO ADM SS Chloride [Moles/Vol] 105 mmol/L Normal 98 - 10 7 mmol/L AO ADM SS CO2 [Moles/Vol] 30 mmol/L Normal 23 - 31 mmol/L AO ADM SS Creatinine [Mass/Vol] 0.82 mg/dL Normal 0.55 - 1.02 mg/dL AO ADM SS Comment on above: Interpretive Data: T esting performed on Siemens Dimension EXL analyzer using a modified kinetic Ochoa technique. Electrolyte Balance 6.0 mEq/L Normal 4.0 - 15 .0 mEq/L AO ADM SS Eosinophil, Absolute 0.1 103/mcL Normal 0.0 - 0 .7 10^3/mcL AO Workflow SS Eosinophils/100 WBC (Bld) 1.6 % Normal 0.0 - 7.0 % AO Workflow SS Erythrocyte distribution width (RBC) [Ratio] 12.7 % Normal 11.5 - 15.5 % AO Workflow SS Estimated Glomerular Filtration Rate 74 ml/min/1.73sqm Invalid Interpretation Code AO Chemistry S Comment on above: Interpretive Data: Stages of Chronic Kidney Disease (CKD) Stage Description eGFR(ml/min/1.73 sq.m.) CKD 1 Normal kidney function or >=90 normal kindney function with possible kidney damage (ex. Proteinuria) CKD 2 Kidney damage with mild loss 60-89 of kidney function CKD 3a Mild to moderate loss of kidney 45-59 function CKD 3b Moderate to severe loss of 30-44 of kindey function CKD 4 Severe loss of kidney function 15-29 CKD 5 Kidney failure <15 Note: (go live 2024) the eGFR calculation was updated to the 2020 CKD-EPI creatinine equation without a race factor to calculate the eGFR results. Globulin 3.0 G/dL Normal 1.5 - 3.8 G/dL AO ADM SS Glucose [Mass/Vol] 97 mg/dL Normal 83 - 110 mg/dL AO ADM SS Glucose [Mass/Vol] 117 mg/dL Invalid Interpretation Code AO Chemistry S Comment on above: Interpretive Data: E stimated average glucose (eAG) is a calculated value from Hemoglobin A1C and is sales development representative of the average blood glucose level in the last 2-3 month period. Normal range: less than 114 mg/dL HbA1c (Bld) [Mass fraction] 5.7 % Normal 4.3 - 6.4 % AO ADM SS Hematocrit (Bld) [Volume fraction] 40.4 % Normal 34.0 - 46.0 % AO Workflow SS Hemoglobin (Bld) [Mass/Vol] 13.6 G/dL Normal 12.0 - 16.0 G/dL AO Workflow SS Lymphocytes (Bld) [#/Vol] 2.4 103/mcL Normal 0.9 - 4.3 10^3/mcL AO Workflow SS Lymphocytes/100 WBC (Bld) 40.6 % High 20.0 - 40.0 % AO Workflow SS MCH (RBC) [Entitic mass] 30.9 pg Normal 27.0 - 33.0 pg AO Workflow SS MCHC 33.7 G/dL Normal 32.0 - 36.0 G/dL AO Workflow SS MCV (RBC) [Entitic vol] 91.8 fL Normal 80.0 - 99.0 fL AO Workflow SS Monocytes (Bld) [#/Vol] 0.4 103/mcL Normal 0.1 - 1.4 10^3/mcL AO Workflow SS Monocytes/100 WBC (Bld) 7.4 % Normal 2.0 - 13.0 % AO Workflow SS Neutrophils (Bld) [#/Vol] 2.9 103/mcL Normal 2.3 - 8.1 10^3/mcL AO Workflow SS Neutrophils/100 WBC (Bld) 49.8 % Low 50.0 - 75.0 % AO Workflow SS Platelet mean volume (Bld) [Entitic vol] 7.9 fL Normal 6.6 - 10.5 fL AO Workflow SS Platelets (Bld) [#/Vol] 256 103/mcL Normal 150 - 450 10^3/mcL AO Workflow SS Potassium [Moles/Vol] 4.0 mmol/L Normal 3.5 - 5.1 mmol/L AO ADM SS Protein [Mass/Vol] 6.7 G/dL Normal 6.4 - 8.2 G/dL AO ADM SS RBC (Bld) [#/Vol] 4.41 106/mcL Normal 4.10 - 5.3 0 10^6/mcL AO Workflow SS Sodium [Moles/Vol] 141 mmol/L Normal 136 - 145 mmol/L AO ADM SS Urea nitrogen [Mass/Vol] 12 mg/dL Normal 7 - 18 mg/dL AO ADM SS Urea nitrogen/Creatinine [Mass ratio] 15 ratio Normal 7 - 27 ratio AO ADM SS WBC (Bld) [#/Vol] 5.9 103/mcL Normal 4.5 - 10.8 10^3/mcL AO Workflow SS LABORATORYOrdered By: Reji Grimm on 04-03-2024 Cholesterol [Mass/Vol] 209 mg/dL High 0 - 200 mg/dL AO ADM SS Comment on above: Interpretive Data: C holesterol Reference Interval: Less than 200 Desirable 200-239 Borderline high risk 240 and above High risk Cholesterol in HDL [Mass/Vol] 105 mg/dL High 40 - 60 mg/dL AO ADM SS Cholesterol in LDL [Mass/Vol] 59 mg/dL Normal 0 - 130 mg/dL AO ADM SS Triglyceride [Mass/Vol] 227 mg/dL High 0 - 150 mg/dL AO ADM SS Comment on above: Interpretive Data: T riglyceride Reference Interval: Less than 150 Normal 150-199 Borderline high risk 200-499 High risk 500 or higher Very high risk LIPIDon 04-03-2024 Cholesterol [Mass/Vol] 209 mg/dL High 0-200 [facility] Comment on above: Result Comment: Chol esterol Reference Interval: Less than 200 Desirable 200-239 Borderline high risk 240 and above High risk Performed By: #### H CV1, HBSAB, HBSAG, CCP, RF #### [address] [address] #### ADIFF, ANEU, ANAIFS, GFR, CMP, CRP, ESR, CBC #### [address] [address] Cholesterol in HDL [Mass/Vol] 105 mg/dL High 40-60 [facility] Comment on above: Performed By: #### H CV1, HBSAB, HBSAG, CCP, RF #### [address] [address] #### ADIFF, ANEU, ANAIFS, GFR, CMP, CRP, ESR, CBC #### [address] [address] Cholesterol in LDL [Mass/Vol] 59 mg/dL Normal 0-130 [facility] Comment on above: Performed By: #### H CV1, HBSAB, HBSAG, CCP, RF #### [address] [address] #### ADIFF, ANEU, ANAIFS, GFR, CMP, CRP, ESR, CBC #### [address] [address] Triglyceride [Mass/Vol] 227 mg/dL High 0-150 [facility] Comment on above: Result Comment: Trig lyceride Reference Interval: Less than 150 Normal 150-199 Borderline high risk 200-499 High risk 500 or higher Very high risk Performed By: #### H CV1, HBSAB, HBSAG, CCP, RF #### [place] [address] #### ADIFF, ANEU, ANAIFS, GFR, CMP, CRP, ESR, CBC #### [address] [address] VIDHon 04-03-2024 Vit. D 25-Hydroxy 16.9 ng/mL Normal [facility] Comment on above: Result Comment: Inte rpretive Values Based on Total 25(OH) Vitamin D: Deficient <20 ng/mL Insufficient 20 - <30 ng/mL Sufficient 30-100 ng/mL Performed By: #### H CV1, HBSAB, HBSAG, CCP, RF #### [facility] [address] [place] [address] #### ADIFF, ANEU, ANAIFS, GFR, CMP, CRP, ESR, CBC #### [facility] [address] [place], [place] [address] CRPon 04-02-2024 C-REACTIVE PROT < 3.00 Normal 0.0-3.0 [facility] Comment on above: Order Comment: LINDA NT WILL RETURN WITH STOOL SAMPLE 04-03-24 OR SOONER WAS GIVEN STOOL KIT AND HAD LAB WORK DRAWN 04-02-24. Performed By: #### L [id number], [id number] #### [facility] [address] [place], [place], [address] CRP [Mass/Vol]Ordered By: Rehana Pinto on 04-02-2024 C-Reactive Protein Extended Range < 3.00 mg/L 0.0-3.0 [facility] Endomysial IgA antibody assa yOrdered By: Jomar Pinto on 04-02-2024 Endomysial IgA Antibody Negative Negative [facility] IgA [Mass/Vol]Ordered By: Rehana Pinto on 04-02-2024 Immunoglobulin A 211 mg/dL 64-422 [facility] Comment on above: Performed at: [address] [id number] Director: Jomar Rebolledo PhD, Phone: [phone] tTG IgA Qn (S)Ordered By: Rehana Pinto on 04-02-2024 Tissue Transglutaminase IgA Ab <2 U/mL 0-3 [facility] Comment on above: Negative 0 - 3 Weak Positive 4 - 10 Positive >10 Tissue Transglutaminase (tTG) has been identified as the endomysial antigen. Studies have demonstr- ated that endomysial IgA antibodies have over 99% specificity for gluten sensitive enteropathy. CCPon 01-03-2024 Cyclic Citrullinated Peptide <20.0 Normal <=19.9 [facility] Comment on above: Result Comment: Cycl ic Citrullinated IgG Interpretation: Result Units Negative <20 Weak Positive 20-39 Moderate Positive 40-59 Strong Positive >=60 A positive result indicates the presence of IgG anti-CCP3 antibodies and suggests the possibility of RA. A negative result indicates no CCP3 antibody or levels below the negative cut-off of the assay. Results of this assay should be used in conjunction with clinical findings and other serological tests. These test results were obtained with the [employer] Quanta Lite CCP3 IgG [place]. Anti-CCP values obtained with different manufacturers' assay methods may not be used interchangeably. Performed By: #### H CV1, HBSAB, HBSAG, CCP, RF ####[place] [address]#### ADIFF, ANEU, ANAIFS, GFR, CMP, CRP, ESR, CBC ####[place] [id number] RFon 01-03-2024 Rheumatoid Factor <6.0 Normal <=5.9 [facility] Comment on above: Result Comment: RF I gM Antibody by Enzyme Immunoassay: Negative < or = 6 Positive > 6 A positive result indicates the presence of RF antibodies and suggests the possibility of rheumatoid arthritis. A negative result indicates no RF IgM antibody or levels below the negative cut-off of the assay. Results of this assay should be used in conjunction with clinical findings and other serological tests. These results were obtained with the Omicia QUANTA Lite RF IgM [place]. RF IgM values obtained with different manufacturers' assay methods may not be used interchangeably. The magnitude of the reported IgM levels cannot be correlated to an endpoint titer. Performed By: #### H CV1, HBSAB, HBSAG, CCP, RF ####[place] [address]#### ADIFF, ANEU, ANAIFS, GFR, CMP, CRP, ESR, CBC ####[place] [address] ANAIFSon 01-02-2024 Antinuclear Ab Screen Negative Normal Negative [facility] Comment on above: Result Comment: Anti -nuclear antibody test is used as an aid in diagnosis of systemic autoimmune diseases. Where positive and clinically warranted, follow-up using disease-specific testing is recommended. Low positive titers are not uncommon with advanced age, certain chronic infections, and malignancies among others. Test methodology: Indirect fluorescence immunoassay (IFA) using HEp-2 cells. Performed By: [facility] [address] [place] [address] Burning Plant Operator: Zachary Frances III, M.D. CLIA#: [id number] Performed By: #### H CV1, HBSAB, HBSAG, CCP, RF ####[place] [address]#### ADIFF, ANEU, ANAIFS, GFR, CMP, CRP, ESR, CBC ####[address] [address] .Auto Diffon 01-01-2024 Basophil, Absolute 0.0 10 3/mcL Normal 0.0-0.2 [facility] Comment on above: Performed By: #### H CV1, HBSAB, HBSAG, CCP, RF #### [place] [address] #### ADIFF, ANEU, ANAIFS, GFR, CMP, CRP, ESR, CBC #### [address] [address] Basophils/100 WBC (Bld) 0.7 % Normal 0.0-2.5 [facility] Comment on above: Performed By: #### H CV1, HBSAB, HBSAG, CCP, RF #### [place] [address] #### ADIFF, ANEU, ANAIFS, GFR, CMP, CRP, ESR, CBC #### [address] [address] Eosinophil, Absolute 0.0 10 3/mcL Normal 0.0-0.7 [facility] Comment on above: Performed By: #### H CV1, HBSAB, HBSAG, CCP, RF #### [place] [address] #### ADIFF, ANEU, ANAIFS, GFR, CMP, CRP, ESR, CBC #### [address] [address] Eosinophils/100 WBC (Bld) 0.8 % Normal 0.0-7.0 [facility] Comment on above: Performed By: #### H CV1, HBSAB, HBSAG, CCP, RF #### [place] [address] #### ADIFF, ANEU, ANAIFS, GFR, CMP, CRP, ESR, CBC #### [address] [address] Lymphocyte, Absolute 1.6 10 3/mcL Normal 0.9-4.3 [facility] Comment on above: Performed By: #### H CV1, HBSAB, HBSAG, CCP, RF #### [place] [address] #### ADIFF, ANEU, ANAIFS, GFR, CMP, CRP, ESR, CBC #### [address] [address] Lymphocytes/100 WBC (Bld) 28.8 % Normal 20.0-40.0 [facility] Comment on above: Performed By: #### H CV1, HBSAB, HBSAG, CCP, RF #### [place] [address] #### ADIFF, ANEU, ANAIFS, GFR, CMP, CRP, ESR, CBC #### [address] [address] Monocyte, Absolute 0.3 10 3/mcL Normal 0.1-1.4 [facility] Comment on above: Performed By: #### H CV1, HBSAB, HBSAG, CCP, RF #### [place] [address] #### ADIFF, ANEU, ANAIFS, GFR, CMP, CRP, ESR, CBC #### [address] [address] Monocytes/100 WBC (Bld) 6.0 % Normal 2.0-13.0 [facility] Comment on above: Performed By: #### H CV1, HBSAB, HBSAG, CCP, RF #### [facility] [address] [place], [place] [address] #### ADIFF, ANEU, ANAIFS, GFR, CMP, CRP, ESR, CBC #### [address] [address] Neutrophils/100 WBC (Bld) 63.7 % Normal 50.0-75.0 [facility] Comment on above: Performed By: #### H CV1, HBSAB, HBSAG, CCP, RF #### [address] [address] #### ADIFF, ANEU, ANAIFS, GFR, CMP, CRP, ESR, CBC #### [address] [address] .GFRon 01-01-2024 GFR 87 ml/min/1.73sqm [facility] Comment on above: Result Comment: GFR Population mean for , Non- Americans Ages 20-29 = 116 mL/min/1.73 sq.m. Ages 30-39 = 107 mL/min/1.73 sq.m. Ages 40-49 = 99 mL/min/1.73 sq.m. Ages 50-59 = 93 mL/min/1.73 sq.m. Ages 60-69 = 85 mL/min/1.73 sq.m. Ages 70+ = 75 mL/min/1.73 sq.m. Chronic Kidney Disease: Less than 60 mL/min/1.73 square meters End Stage Renal Disease: Less than 15 mL/min/1.73 square meters Performed By: #### H CV1, HBSAB, HBSAG, CCP, RF #### [address] [address] #### ADIFF, ANEU, ANAIFS, GFR, CMP, CRP, ESR, CBC #### [address] [address] GFR Non- 72 ml/min/1.73sqm [facility] Comment on above: Result Comment: GFR Population mean for , Non- Americans Ages 20-29 = 116 mL/min/1.73 sq.m. Ages 30-39 = 107 mL/min/1.73 sq.m. Ages 40-49 = 99 mL/min/1.73 sq.m. Ages 50-59 = 93 mL/min/1.73 sq.m. Ages 60-69 = 85 mL/min/1.73 sq.m. Ages 70+ = 75 mL/min/1.73 sq.m. Chronic Kidney Disease: Less than 60 mL/min/1.73 square meters End Stage Renal Disease: Less than 15 mL/min/1.73 square meters Performed By: #### H CV1, HBSAB, HBSAG, CCP, RF #### [place] [address] #### ADIFF, ANEU, ANAIFS, GFR, CMP, CRP, ESR, CBC #### [address] [address] .NEUABSon 01-01-2024 Neutrophil, Absolute 3.6 10 3/mcL Normal 2.3-8.1 [facility] Comment on above: Performed By: #### H CV1, HBSAB, HBSAG, CCP, RF #### [place] [address] #### ADIFF, ANEU, ANAIFS, GFR, CMP, CRP, ESR, CBC #### [address] [address] CBCon 01-01-2024 Erythrocyte distribution width (RBC) [Ratio] 13.2 % Normal 11.5-15.5 [facility] Comment on above: Performed By: #### H CV1, HBSAB, HBSAG, CCP, RF #### [place] [address] #### ADIFF, ANEU, ANAIFS, GFR, CMP, CRP, ESR, CBC #### [address] [address] Hematocrit (Bld) [Volume fraction] 39.7 % Normal 34.0-46.0 [facility] Comment on above: Performed By: #### H CV1, HBSAB, HBSAG, CCP, RF #### [place] [address] #### ADIFF, ANEU, ANAIFS, GFR, CMP, CRP, ESR, CBC #### [address] [address] Hgb 13.2 G/dL Normal 12.0-16.0 [facility] Comment on above: Performed By: #### H CV1, HBSAB, HBSAG, CCP, RF #### [place] [address] #### ADIFF, ANEU, ANAIFS, GFR, CMP, CRP, ESR, CBC #### [address] [address] MCH (RBC) [Entitic mass] 30.8 pg Normal 27.0-33.0 [facility] Comment on above: Performed By: #### H CV1, HBSAB, HBSAG, CCP, RF #### [place] [address] #### ADIFF, ANEU, ANAIFS, GFR, CMP, CRP, ESR, CBC #### [address] [address] MCHC 33.2 G/dL Normal 32.0-36.0 [facility] Comment on above: Performed By: #### H CV1, HBSAB, HBSAG, CCP, RF #### [place] [id number] #### ADIFF, ANEU, ANAIFS, GFR, CMP, CRP, ESR, CBC #### [address] [address] MCV (RBC) [Entitic vol] 92.5 fL Normal 80.0-99.0 [facility] Comment on above: Performed By: #### H CV1, HBSAB, HBSAG, CCP, RF #### [place] [id number] #### ADIFF, ANEU, ANAIFS, GFR, CMP, CRP, ESR, CBC #### [address] [address] Platelet 291 10 3/mcL Normal 150-450 [facility] Comment on above: Performed By: #### H CV1, HBSAB, HBSAG, CCP, RF #### [place] [id number] #### ADIFF, ANEU, ANAIFS, GFR, CMP, CRP, ESR, CBC #### [address] [address] Platelet mean volume (Bld) [Entitic vol] 7.5 fL Normal 6.6-10.5 [facility] Comment on above: Performed By: #### H CV1, HBSAB, HBSAG, CCP, RF #### [place] [address] #### ADIFF, ANEU, ANAIFS, GFR, CMP, CRP, ESR, CBC #### [address] [address] RBC 4.29 10 6/mcL Normal 4.10-5.30 [facility] Comment on above: Performed By: #### H CV1, HBSAB, HBSAG, CCP, RF #### [place] [address] #### ADIFF, ANEU, ANAIFS, GFR, CMP, CRP, ESR, CBC #### [address] [address] WBC 5.6 10 3/mcL Normal 4.5-10.8 [facility] Comment on above: Performed By: #### H CV1, HBSAB, HBSAG, CCP, RF #### [place] [address] #### ADIFF, ANEU, ANAIFS, GFR, CMP, CRP, ESR, CBC #### [address] [address] CMPon 01-01-2024 Albumin Level 4.1 G/dL Normal 3.4-4.8 [facility] Comment on above: Performed By: #### H CV1, HBSAB, HBSAG, CCP, RF #### [place] [address] #### ADIFF, ANEU, ANAIFS, GFR, CMP, CRP, ESR, CBC #### [address] [address] Albumin/Globulin [Mass ratio] 1.5 {ratio} Normal 1.1-2.5 [facility] Comment on above: Performed By: #### H CV1, HBSAB, HBSAG, CCP, RF #### [place] [address] #### ADIFF, ANEU, ANAIFS, GFR, CMP, CRP, ESR, CBC #### [address] [address] ALP [Catalytic activity/Vol] 86 U/L Normal 40-135 [facility] Comment on above: Performed By: #### H CV1, HBSAB, HBSAG, CCP, RF #### [place] [address] #### ADIFF, ANEU, ANAIFS, GFR, CMP, CRP, ESR, CBC #### [address] [address] ALT [Catalytic activity/Vol] 28 U/L Normal 14-59 [facility] Comment on above: Performed By: #### H CV1, HBSAB, HBSAG, CCP, RF #### [place] [address] #### ADIFF, ANEU, ANAIFS, GFR, CMP, CRP, ESR, CBC #### [address] [address] AST [Catalytic activity/Vol] 18 U/L Normal 10-40 [facility] Comment on above: Performed By: #### H CV1, HBSAB, HBSAG, CCP, RF #### [place] [address] #### ADIFF, ANEU, ANAIFS, GFR, CMP, CRP, ESR, CBC #### [address] [address] Bili Total 0.4 mg/dL Normal 0.2-1.0 [facility] Comment on above: Result Comment: Use of this assay is not recommended for patients undergoing treatment with eltrombopag due to the potential for falsely elevated results. Performed By: #### H CV1, HBSAB, HBSAG, CCP, RF #### [place] [address] #### ADIFF, ANEU, ANAIFS, GFR, CMP, CRP, ESR, CBC #### [address] [address] BUN/Creatinine Ratio 23 ratio Normal 7-27 [facility] Comment on above: Performed By: #### H CV1, HBSAB, HBSAG, CCP, RF #### [place] [address] #### ADIFF, ANEU, ANAIFS, GFR, CMP, CRP, ESR, CBC #### [address] [address] Calcium [Mass/Vol] 9.0 mg/dL Normal 8.4-10.2 [facility] Comment on above: Performed By: #### H CV1, HBSAB, HBSAG, CCP, RF #### [place] [address] #### ADIFF, ANEU, ANAIFS, GFR, CMP, CRP, ESR, CBC #### [address] [address] Chloride [Moles/Vol] 103 mmol/L Normal 98-107 [facility] Comment on above: Performed By: #### H CV1, HBSAB, HBSAG, CCP, RF #### [place] [address] #### ADIFF, ANEU, ANAIFS, GFR, CMP, CRP, ESR, CBC #### [address] [address] CO2 [Moles/Vol] 27 mmol/L Normal 23-31 [facility] Comment on above: Performed By: #### H CV1, HBSAB, HBSAG, CCP, RF #### [place] [address] #### ADIFF, ANEU, ANAIFS, GFR, CMP, CRP, ESR, CBC #### [address] [address] Creatinine [Mass/Vol] 0.78 mg/dL Normal 0.55-1.02 [facility] Comment on above: Result Comment: Test ing performed on Siemens Dimension EXL analyzer using a modified kinetic Ochoa technique. Performed By: #### H CV1, HBSAB, HBSAG, CCP, RF #### [place] [address] #### ADIFF, ANEU, ANAIFS, GFR, CMP, CRP, ESR, CBC #### [address] [address] Electrolyte Balance 10.0 mEq/L Normal 4.0-15.0 [facility] Comment on above: Performed By: #### H CV1, HBSAB, HBSAG, CCP, RF #### [place] [address] #### ADIFF, ANEU, ANAIFS, GFR, CMP, CRP, ESR, CBC #### [address] [address] Globulin 2.8 G/dL Normal [facility] Comment on above: Performed By: #### H CV1, HBSAB, HBSAG, CCP, RF #### [place] [address] #### ADIFF, ANEU, ANAIFS, GFR, CMP, CRP, ESR, CBC #### [address] [address] Glucose [Mass/Vol] 96 mg/dL Normal 83-110 [facility] Comment on above: Performed By: #### H CV1, HBSAB, HBSAG, CCP, RF #### [place] [address] #### ADIFF, ANEU, ANAIFS, GFR, CMP, CRP, ESR, CBC #### [address] [address] Potassium [Moles/Vol] 4.5 mmol/L Normal 3.5-5.1 [facility] Comment on above: Performed By: #### H CV1, HBSAB, HBSAG, CCP, RF #### [place] [address] #### ADIFF, ANEU, ANAIFS, GFR, CMP, CRP, ESR, CBC #### [address] [address] Sodium [Moles/Vol] 140 mmol/L Normal 136-145 [facility] Comment on above: Performed By: #### H CV1, HBSAB, HBSAG, CCP, RF #### [place] [address] #### ADIFF, ANEU, ANAIFS, GFR, CMP, CRP, ESR, CBC #### [address] [address] Total Protein 6.9 G/dL Normal 6.4-8.2 [facility] Comment on above: Performed By: #### H CV1, HBSAB, HBSAG, CCP, RF #### [place] [address] #### ADIFF, ANEU, ANAIFS, GFR, CMP, CRP, ESR, CBC #### [address] [address] Urea nitrogen [Mass/Vol] 18 mg/dL Normal 7-18 [facility] Comment on above: Performed By: #### H CV1, HBSAB, HBSAG, CCP, RF #### [place] [address] #### ADIFF, ANEU, ANAIFS, GFR, CMP, CRP, ESR, CBC #### [address] [address] CRPon 01-01-2024 C-Reactive Protein 0.2 mg/dL Normal 0.0-0.3 [facility] Comment on above: Performed By: #### H CV1, HBSAB, HBSAG, CCP, RF #### [place] [address] #### ADIFF, ANEU, ANAIFS, GFR, CMP, CRP, ESR, CBC #### [address] [address] ESRon 01-01-2024 Erythrocyte Sed Rate 10 mm/hr Normal 0-30 [facility] Comment on above: Performed By: #### H CV1, HBSAB, HBSAG, CCP, RF #### [place] [address] #### ADIFF, ANEU, ANAIFS, GFR, CMP, CRP, ESR, CBC #### [address] [address] HBSABon 01-01-2024 Hep B Surf Ab <3.1 Low >=10.0 [facility] Comment on above: Result Comment: 0 to < 10.0 mIU/mL Nonreactive Patient is considered not to have protective immunity to HBV infection >/= 10.0 mIU/mL Reactive Patient is considered to have protective immunity to HBV infection. This assay is traceable to the World Health Organization (WHO) Hepatitis B Immunoglobulin 1st International Reference Preparation (1976). The accepted criteria for immunity to HBV is anti-HBs activity >/= 10.0 mIU/mL, as defined by the WHO International Reference Preparation. Performed By: #### H CV1, HBSAB, HBSAG, CCP, RF ####[place] [address]#### ADIFF, ANEU, ANAIFS, GFR, CMP, CRP, ESR, CBC ####[address] [address] HBSAGon 01-01-2024 Hep B Surf Ag Non-Reactive Normal Non-Reactive [facility] Comment on above: Performed By: #### H CV1, HBSAB, HBSAG, CCP, RF #### [place] [address] #### ADIFF, ANEU, ANAIFS, GFR, CMP, CRP, ESR, CBC #### [address] [address] HCVon 01-01-2024 Hep C Ab Non-Reactive Normal Non-Reactive [facility] Comment on above: Performed By: #### H CV1, HBSAB, HBSAG, CCP, RF ####[address] [place], [place] [address]#### ADIFF, ANEU, ANAIFS, GFR, CMP, CRP, ESR, CBC ####[address] [place], [place] [address] Hep C Ab Int Normal [facility] Comment on above: Result Comment: Nonr eactive: Samples with a value < 0.80 are considered nonreactive (negative) for antibodies to HCV. A negative test result does not exclude the possibility of exposure to or infection with HCV. HCV antibodies may be undetectable in some stages of the infection and in some clinical conditions. See Interp Performed By: #### H CV1, HBSAB, HBSAG, CCP, RF ####[place] [id number] [place] [address]#### ADIFF, ANEU, ANAIFS, GFR, CMP, CRP, ESR, CBC ####[address] [place], [place] [address] LABORATORYOrdered By: SYSTEM SYSTEM on 01-01-2024 Albumin BCP dye [Mass/Vol] 4.1 G/dL Normal 3.4 - 4.8 G/dL AO ADM SS Albumin/Globulin [Mass ratio] 1.5 {ratio} Normal 1.1 - 2.5 ratio AO ADM SS ALP [Catalytic activity/Vol] 86 U/L Normal 40 - 135 U/L AO ADM SS ALT With P-5'-P [Catalytic activity/Vol] 28 U/L Normal 14 - 59 U/L AO ADM SS AST With P-5'-P [Catalytic activity/Vol] 18 U/L Normal 10 - 40 U/L AO ADM SS Basophils (Bld) [#/Vol] 0.0 103/mcL Normal 0.0 - 0.2 10^3/mcL AO Workflow SS Basophils/100 WBC (Bld) 0.7 % Normal 0.0 - 2.5 % AO Workflow SS Bilirubin [Mass/Vol] 0.4 mg/dL Normal 0.2 - 1 .0 mg/dL AO ADM SS Comment on above: Interpretive Data: U se of this assay is not recommended for patients undergoing treatment with eltrombopag due to the potential for falsely elevated results. Calcium [Mass/Vol] 9.0 mg/dL Normal 8.4 - 10. 2 mg/dL AO ADM SS Chloride [Moles/Vol] 103 mmol/L Normal 98 - 10 7 mmol/L AO ADM SS CO2 [Moles/Vol] 27 mmol/L Normal 23 - 31 mmol/L AO ADM SS Creatinine [Mass/Vol] 0.78 mg/dL Normal 0.55 - 1.02 mg/dL AO ADM SS Comment on above: Interpretive Data: T esting performed on Siemens Dimension EXL analyzer using a modified kinetic Ochoa technique. CRP [Mass/Vol] 0.2 mg/dL Normal 0.0 - 0.3 mg/dL AO ADM SS Electrolyte Balance 10.0 mEq/L Normal 4.0 - 15 .0 mEq/L AO ADM SS Eosinophil, Absolute 0.0 103/mcL Normal 0.0 - 0 .7 10^3/mcL AO Workflow SS Eosinophils/100 WBC (Bld) 0.8 % Normal 0.0 - 7.0 % AO Workflow SS Erythrocyte distribution width (RBC) [Ratio] 13.2 % Normal 11.5 - 15.5 % AO Workflow SS GFR/1.73 sq M.predicted among blacks MDRD (S/P/Bld) [Vol rate/Area] 87 ml/min/1.73sqm Invalid Interpretation Code AO Chemistry S Comment on above: Interpretive Data: GFR Population mean for , Non- Americans Ages 20-29 = 116 mL/min/1.73 sq.m. Ages 30-39 = 107 mL/min/1.73 sq.m. Ages 40-49 = 99 mL/min/1.73 sq.m. Ages 50-59 = 93 mL/min/1.73 sq.m. Ages 60-69 = 85 mL/min/1.73 sq.m. Ages 70+ = 75 mL/min/1.73 sq.m. Chronic Kidney Disease: Less than 60 mL/min/1.73 square meters End Stage Renal Disease: Less than 15 mL/min/1.73 square meters GFR/1.73 sq M.predicted among non-blacks MDRD (S/P/Bld) [Vol rate/Area] 72 ml/min/1.73sqm Invalid Interpretation Code AO Chemistry S Comment on above: Interpretive Data: GFR Population mean for , Non- Americans Ages 20-29 = 116 mL/min/1.73 sq.m. Ages 30-39 = 107 mL/min/1.73 sq.m. Ages 40-49 = 99 mL/min/1.73 sq.m. Ages 50-59 = 93 mL/min/1.73 sq.m. Ages 60-69 = 85 mL/min/1.73 sq.m. Ages 70+ = 75 mL/min/1.73 sq.m. Chronic Kidney Disease: Less than 60 mL/min/1.73 square meters End Stage Renal Disease: Less than 15 mL/min/1.73 square meters Globulin 2.8 G/dL Invalid Interpretation Code AO ADM SS Glucose [Mass/Vol] 96 mg/dL Normal 83 - 110 mg/dL AO ADM SS Hematocrit (Bld) [Volume fraction] 39.7 % Normal 34.0 - 46.0 % AO Workflow SS Hemoglobin (Bld) [Mass/Vol] 13.2 G/dL Normal 12.0 - 16.0 G/dL AO Workflow SS Lymphocytes (Bld) [#/Vol] 1.6 103/mcL Normal 0.9 - 4.3 10^3/mcL AO Workflow SS Lymphocytes/100 WBC (Bld) 28.8 % Normal 20.0 - 40.0 % AO Workflow SS MCH (RBC) [Entitic mass] 30.8 pg Normal 27.0 - 33.0 pg AO Workflow SS MCHC 33.2 G/dL Normal 32.0 - 36.0 G/dL AO Workflow SS MCV (RBC) [Entitic vol] 92.5 fL Normal 80.0 - 99.0 fL AO Workflow SS Monocytes (Bld) [#/Vol] 0.3 103/mcL Normal 0.1 - 1.4 10^3/mcL AO Workflow SS Monocytes/100 WBC (Bld) 6.0 % Normal 2.0 - 13.0 % AO Workflow SS Neutrophils (Bld) [#/Vol] 3.6 103/mcL Normal 2.3 - 8.1 10^3/mcL AO Workflow SS Neutrophils/100 WBC (Bld) 63.7 % Normal 50.0 - 75.0 % AO Workflow SS Platelet mean volume (Bld) [Entitic vol] 7.5 fL Normal 6.6 - 10.5 fL AO Workflow SS Platelets (Bld) [#/Vol] 291 103/mcL Normal 150 - 450 10^3/mcL AO Workflow SS Potassium [Moles/Vol] 4.5 mmol/L Normal 3.5 - 5.1 mmol/L AO ADM SS Protein [Mass/Vol] 6.9 G/dL Normal 6.4 - 8.2 G/dL AO ADM SS RBC (Bld) [#/Vol] 4.29 106/mcL Normal 4.10 - 5.3 0 10^6/mcL AO Workflow SS Sodium [Moles/Vol] 140 mmol/L Normal 136 - 145 mmol/L AO ADM SS Urea nitrogen [Mass/Vol] 18 mg/dL Normal 7 - 18 mg/dL AO ADM SS Urea nitrogen/Creatinine [Mass ratio] 23 ratio Normal 7 - 27 ratio AO ADM SS WBC (Bld) [#/Vol] 5.6 103/mcL Normal 4.5 - 10.8 10^3/mcL AO Workflow SS LABORATORYOrdered By: Toña Pat on 01-01-2024 ESR Photometric method (Bld) [Velocity] 10 mm/hr Normal 0 - 30 mm/hr AO Man Heme SS LABORATORYOrdered By: Kristi Shrestha on 01-01-2024 HBV surface Ab Qn (S) mIU/mL Low >=10.0mIU/mL A H ADM SS Comment on above: Interpretive Data: 0 to < 10.0 mIU/mL Nonreactive Patient is considered not to have protective immunity to HBV infection >/= 10.0 mIU/mL Reactive Patient is considered to have protective immunity to HBV infection. This assay is traceable to the World Health Organization (WHO) Hepatitis B Immunoglobulin 1st International Reference Preparation (1976). The accepted criteria for immunity to HBV is anti-HBs activity >/= 10.0 mIU/mL, as defined by the WHO International Reference Preparation. HBV surface Ag IA Ql Non-Reactive (01/01/24 2:56 PM) Normal Non-Reactive AH ADM SS HCV Ab IA Ql Non-Reactive (01/01/24 2:56 PM) Normal Non-Reactive AH ADM SS HCV Ab IA Ql Nonreactive: Samples with a value < 0.80 are considered nonreactive (negative) for antibodies to HCV.A negative test result does not exclude the possibility of exposure to or infection with HCV. HCV antibodies may be undetectable in some stages of the infection and in some clinical conditions. Invalid Interpretation Code AH Chemistry S XR FINGER 3RD DIGIT 3 VIEWS RIGHTon 11-10-2023 XR FINGER 3RD DIGIT 3 VIEWS RIGHT ORIGINAL EXAMINATION: THREE XRAY VIEWS OF THE RIGHT FINGERS 11/10/2023 12:55 pm COMPARISON: None. HISTORY: ORDERING SYSTEM PROVIDED HISTORY: Reason for Exam: pain FINDINGS: No visible fracture dislocation. There is soft tissue swelling at the dorsal aspect of the proximal interphalangeal joint of the 3rd digit, the associated joint spaces maintained. There is severe 1st carpal metacarpal joint degenerative change. IMPRESSION: 3rd digit soft tissue swelling with no visible associated joint abnormality. 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 Ages 30-39 = 107 mL/min/1.73 sq.m. Ages 40-49 = 99 mL/min/1.73 sq.m. Ages 50-59 = 93 mL/min/1.73 sq.m. Ages 60-69 = 85 mL/min/1.73 sq.m. Ages 70+ = 75 mL/min/1.73 sq.m. Chronic Kidney Disease: Less than 60 mL/min/1.73 square meters End Stage Renal Disease: Less than 15 mL/min/1.73 square meters Performed By: #### B MP, GFR #### [address] [address] GFR Non- 63 ml/min/1.73sqm Normal [facility] ([place]) Comment on above: Result Comment: GFR Population mean for , Non- Americans Ages 20-29 = 116 mL/min/1.73 sq.m. Ages 30-39 = 107 mL/min/1.73 sq.m. Ages 40-49 = 99 mL/min/1.73 sq.m. Ages 50-59 = 93 mL/min/1.73 sq.m. Ages 60-69 = 85 mL/min/1.73 sq.m. Ages 70+ = 75 mL/min/1.73 sq.m. Chronic Kidney Disease: Less than 60 mL/min/1.73 square meters End Stage Renal Disease: Less than 15 mL/min/1.73 square meters Performed By: #### B MP, GFR #### [address] [address] BMPon 03-26-2023 BUN/Creatinine Ratio 21 ratio Normal 7-27 [facility] ([place]) Comment on above: Performed By: #### B MP, GFR #### [address] [address] Calcium [Mass/Vol] 9.3 mg/dL Normal 8.4-10.2 [facility] ([place]) Comment on above: Performed By: #### B MP, GFR #### [address] [address] Chloride [Moles/Vol] 103 mmol/L Normal 98-107 [facility] ([place]) Comment on above: Performed By: #### B MP, GFR #### [address] [address] CO2 [Moles/Vol] 30 mmol/L Normal 23-31 [facility] ([place]) Comment on above: Performed By: #### B MP, GFR #### [address] [address] Creatinine [Mass/Vol] 0.87 mg/dL Normal 0.55-1.02 [facility] ([place]) Comment on above: Performed By: #### B MP, GFR #### [address] [address] Electrolyte Balance 9.0 mEq/L Normal 4.0-15.0 [facility] ([place]) Comment on above: Performed By: #### B MP, GFR #### [address] [address] Glucose [Mass/Vol] 84 mg/dL Normal 83-110 [facility] ([place]) Comment on above: Performed By: #### B MP, GFR #### [place] [address] [place], [place] [address] Potassium [Moles/Vol] 4.9 mmol/L Normal 3.5-5.1 [facility] ([place]) Comment on above: Performed By: #### B MP, GFR #### [place] [address] [place], [place] [address] Sodium [Moles/Vol] 142 mmol/L Normal 136-145 [facility] ([place]) Comment on above: Performed By: #### B MP, GFR #### [address] [address] Urea nitrogen [Mass/Vol] 18 mg/dL Normal 7-18 [facility] ([place]) Comment on above: Performed By: #### B MP, GFR #### [address] [address] LABORATORYOrdered By: SYSTEM SYSTEM on 03-26-2023 Calcium [Mass/Vol] 9.3 mg/dL Normal 8.4 - 10. 2 mg/dL AO ADM SS Chloride [Moles/Vol] 103 mmol/L Normal 98 - 10 7 mmol/L AO ADM SS CO2 [Moles/Vol] 30 mmol/L Normal 23 - 31 mmol/L AO ADM SS Creatinine [Mass/Vol] 0.87 mg/dL Normal 0.55 - 1.02 mg/dL AO ADM SS Electrolyte Balance 9.0 mEq/L Normal 4.0 - 15 .0 mEq/L AO ADM SS GFR/1.73 sq M.predicted among blacks MDRD (S/P/Bld) [Vol rate/Area] 77 ml/min/1.73sqm Invalid Interpretation Code AO Chemistry S Comment on above: Interpretive Data: GFR Population mean for , Non- Americans Ages 20-29 = 116 mL/min/1.73 sq.m. Ages 30-39 = 107 mL/min/1.73 sq.m. Ages 40-49 = 99 mL/min/1.73 sq.m. Ages 50-59 = 93 mL/min/1.73 sq.m. Ages 60-69 = 85 mL/min/1.73 sq.m. Ages 70+ = 75 mL/min/1.73 sq.m. Chronic Kidney Disease: Less than 60 mL/min/1.73 square meters End Stage Renal Disease: Less than 15 mL/min/1.73 square meters GFR/1.73 sq M.predicted among non-blacks MDRD (S/P/Bld) [Vol rate/Area] 63 ml/min/1.73sqm Invalid Interpretation Code AO Chemistry S Comment on above: Interpretive Data: GFR Population mean for , Non- Americans Ages 20-29 = 116 mL/min/1.73 sq.m. Ages 30-39 = 107 mL/min/1.73 sq.m. Ages 40-49 = 99 mL/min/1.73 sq.m. Ages 50-59 = 93 mL/min/1.73 sq.m. Ages 60-69 = 85 mL/min/1.73 sq.m. Ages 70+ = 75 mL/min/1.73 sq.m. Chronic Kidney Disease: Less than 60 mL/min/1.73 square meters End Stage Renal Disease: Less than 15 mL/min/1.73 square meters Glucose [Mass/Vol] 84 mg/dL Normal 83 - 110 mg/dL AO ADM SS Potassium [Moles/Vol] 4.9 mmol/L Normal 3.5 - 5.1 mmol/L AO ADM SS Sodium [Moles/Vol] 142 mmol/L Normal 136 - 145 mmol/L AO ADM SS Urea nitrogen [Mass/Vol] 18 mg/dL Normal 7 - 18 mg/dL AO ADM SS Urea nitrogen/Creatinine [Mass ratio] 21 ratio Normal 7 - 27 ratio AO ADM SS BD BONE DENSITY DEXA AXIAL S KASANDRA 12-22-2022 BD BONE DENSITY DEXA AXIAL SKELETON ORIGINAL EXAMINATION: BONE DENSITOMETRY 12/22/2022 1:45 pm TECHNIQUE: A bone density dual x-ray absorptiometry (DEXA) scan was performed of the lumbar spine and left hip on a [employer] system. COMPARISON: 01/26/2020. HISTORY: ORDERING SYSTEM PROVIDED HISTORY: Reason for Exam: Osteoporosis Screening Postmenopausal. FINDINGS: BMD (g/cm2) Lumbar Spine L1-L4: 0.901. T Score Lumbar Spine L1-L4: -1.3 BMD (g/cm2) Left Femoral Neck: 0.506. T Score Left Femoral Neck: -3.1 BMD (g/cm2) Left Hip: 0.714. T Score Left Hip: -1.9 BMD Change from previous Hip: -5.7% BMD Change from previous Lumbar spine: 0% IMPRESSION: Osteoporosis by WHO criteria. *By the World Health Organization criteria: (Comparing with young normal sex matched population) - Normal: T-score at or above -1 SD (standard deviation) - Osteopenia: T-score between -1 and -2.5 SD - Osteoporosis: T-score at or below -2.5 SD I have personally reviewed the images of this examination and agree with the resident's findings and interpretation. Interpreted by: Chayito Dunbar Preliminary Report By: Philip Cota Electronically signed By Chayito Dunbar Dictated Date: 12/22/2022 2:44:07 PM Prelim Date: 12/22/2022 4:05:58 PM Sign Date: 12/22/2022 4:05:58 PM Ordering Provider: DARLENE LORENZ Normal [facility] ([place]) .Auto Diffon 10-12-2022 Basophil, Absolute 0.0 10 3/mcL Normal 0.0-0.2 [facility] ([place]) Comment on above: Performed By: #### A 1C, ADIFF, ANEU, CMP, GFR, LIPID, VIDH, CBC #### [address] [address] Basophils/100 WBC (Bld) 0.5 % Normal 0.0-2.5 [facility] ([place]) Comment on above: Performed By: #### A 1C, ADIFF, ANEU, CMP, GFR, LIPID, VIDH, CBC #### [address] [address] Eosinophil, Absolute 0.3 10 3/mcL Normal 0.0-0.4 [facility] ([place]) Comment on above: Performed By: #### A 1C, ADIFF, ANEU, CMP, GFR, LIPID, VIDH, CBC #### [address] [address] Eosinophils/100 WBC (Bld) 5.0 % Normal 0.0-7.0 [facility] ([place]) Comment on above: Performed By: #### A 1C, ADIFF, ANEU, CMP, GFR, LIPID, VIDH, CBC #### [address] [address] Lymphocyte, Absolute 2.1 10 3/mcL Normal 0.8-3.9 [facility] ([place]) Comment on above: Performed By: #### A 1C, ADIFF, ANEU, CMP, GFR, LIPID, VIDH, CBC #### [address] [address] Lymphocytes/100 WBC (Bld) 38.2 % Normal 10.0-50.0 [facility] ([place]) Comment on above: Performed By: #### A 1C, ADIFF, ANEU, CMP, GFR, LIPID, VIDH, CBC #### [address] [address] Monocyte, Absolute 0.4 10 3/mcL Normal 0.2-1.0 [facility] ([place]) Comment on above: Performed By: #### A 1C, ADIFF, ANEU, CMP, GFR, LIPID, VIDH, CBC #### [address] [address] Monocytes/100 WBC (Bld) 7.1 % Normal 1.7-13.0 [facility] ([place]) Comment on above: Performed By: #### A 1C, ADIFF, ANEU, CMP, GFR, LIPID, VIDH, CBC #### [address] [address] Neutrophils/100 WBC (Bld) 49.2 % Normal 37.0-80.0 [facility] ([place]) Comment on above: Performed By: #### A 1C, ADIFF, ANEU, CMP, GFR, LIPID, VIDH, CBC #### [address] [address] .GFRon 10-12-2022 GFR Non- 78 ml/min/1.73sqm Normal [facility] ([place]) Comment on above: Result Comment: GFR Population mean for , Non- Americans Ages 20-29 = 116 mL/min/1.73 sq.m. Ages 30-39 = 107 mL/min/1.73 sq.m. Ages 40-49 = 99 mL/min/1.73 sq.m. Ages 50-59 = 93 mL/min/1.73 sq.m. Ages 60-69 = 85 mL/min/1.73 sq.m. Ages 70+ = 75 mL/min/1.73 sq.m. Chronic Kidney Disease: Less than 60 mL/min/1.73 square meters End Stage Renal Disease: Less than 15 mL/min/1.73 square meters Performed By: #### A 1C, ADIFF, ANEU, CMP, GFR, LIPID, VIDH, CBC #### [address] [address] GFR 94 ml/min/1.73sqm Normal [facility] ([place]) Comment on above: Result Comment: GFR Population mean for , Non- Americans Ages 20-29 = 116 mL/min/1.73 sq.m. Ages 30-39 = 107 mL/min/1.73 sq.m. Ages 40-49 = 99 mL/min/1.73 sq.m. Ages 50-59 = 93 mL/min/1.73 sq.m. Ages 60-69 = 85 mL/min/1.73 sq.m. Ages 70+ = 75 mL/min/1.73 sq.m. Chronic Kidney Disease: Less than 60 mL/min/1.73 square meters End Stage Renal Disease: Less than 15 mL/min/1.73 square meters Performed By: #### A 1C, ADIFF, ANEU, CMP, GFR, LIPID, VIDH, CBC #### [address] [id number] .NEUABSon 10-12-2022 Neutrophil, Absolute 2.7 10 3/mcL Low 2.9-6.2 [facility] ([place]) Comment on above: Performed By: #### A 1C, ADIFF, ANEU, CMP, GFR, LIPID, VIDH, CBC #### [address] [address] A1Con 10-12-2022 HbA1c (Bld) [Mass fraction] 5.7 % Normal 4.3-6.4 [facility] ([place]) Comment on above: Performed By: #### A 1C, ADIFF, ANEU, CMP, GFR, LIPID, VIDH, CBC #### [place] [id number] CBCon 10-12-2022 Erythrocyte distribution width (RBC) [Ratio] 13.3 % Normal 11.5-14.5 [facility] ([place]) Comment on above: Performed By: #### A 1C, ADIFF, ANEU, CMP, GFR, LIPID, VIDH, CBC #### [place] [address] Hematocrit (Bld) [Volume fraction] 39.4 % Normal 37.0-47.0 [facility] ([place]) Comment on above: Performed By: #### A 1C, ADIFF, ANEU, CMP, GFR, LIPID, VIDH, CBC #### [place] [address] Hgb 13.2 G/dL Normal 12.0-16.0 [facility] ([place]) Comment on above: Performed By: #### A 1C, ADIFF, ANEU, CMP, GFR, LIPID, VIDH, CBC #### [place] [address] MCH (RBC) [Entitic mass] 29.8 pg Normal 27.0-31.2 [facility] ([place]) Comment on above: Performed By: #### A 1C, ADIFF, ANEU, CMP, GFR, LIPID, VIDH, CBC #### [place] [address] MCHC 33.3 G/dL Normal 33.0-37.0 [facility] ([place]) Comment on above: Performed By: #### A 1C, ADIFF, ANEU, CMP, GFR, LIPID, VIDH, CBC #### [place] [address] MCV (RBC) [Entitic vol] 89.5 fL Normal 80.0-94.0 [facility] ([place]) Comment on above: Performed By: #### A 1C, ADIFF, ANEU, CMP, GFR, LIPID, VIDH, CBC #### [address] [address] Platelet 322 10 3/mcL Normal 130-400 [facility] ([place]) Comment on above: Performed By: #### A 1C, ADIFF, ANEU, CMP, GFR, LIPID, VIDH, CBC #### [address] [address] Platelet mean volume (Bld) [Entitic vol] 7.7 fL Normal 7.4-10.4 [facility] ([place]) Comment on above: Performed By: #### A 1C, ADIFF, ANEU, CMP, GFR, LIPID, VIDH, CBC #### [place] [id number] RBC 4.41 10 6/mcL Normal 4.20-5.40 [facility] ([place]) Comment on above: Performed By: #### A 1C, ADIFF, ANEU, CMP, GFR, LIPID, VIDH, CBC #### [place] [id number] WBC 5.6 10 3/mcL Normal 4.6-10.8 [facility] ([place]) Comment on above: Performed By: #### A 1C, ADIFF, ANEU, CMP, GFR, LIPID, VIDH, CBC #### [place] [id number] CMPon 10-12-2022 Albumin Level 3.9 G/dL Normal 3.4-4.8 [facility] ([place]) Comment on above: Performed By: #### A 1C, ADIFF, ANEU, CMP, GFR, LIPID, VIDH, CBC #### [place] [id number] Albumin/Globulin [Mass ratio] 1.2 {ratio} Normal 1.1-2.5 [facility] ([place]) Comment on above: Performed By: #### A 1C, ADIFF, ANEU, CMP, GFR, LIPID, VIDH, CBC #### [place] [id number] ALP [Catalytic activity/Vol] 124 U/L Normal 40-135 [facility] ([place]) Comment on above: Performed By: #### A 1C, ADIFF, ANEU, CMP, GFR, LIPID, VIDH, CBC #### [address] [address] ALT [Catalytic activity/Vol] 23 U/L Normal 14-59 [facility] ([place]) Comment on above: Performed By: #### A 1C, ADIFF, ANEU, CMP, GFR, LIPID, VIDH, CBC #### [address] [address] AST [Catalytic activity/Vol] 19 U/L Normal 10-40 [facility] ([place]) Comment on above: Performed By: #### A 1C, ADIFF, ANEU, CMP, GFR, LIPID, VIDH, CBC #### [address] [address] Bili Total 0.2 mg/dL Normal 0.2-1.0 [facility] ([place]) Comment on above: Result Comment: Use of this assay is not recommended for patients undergoing treatment with eltrombopag due to the potential for falsely elevated results. Performed By: #### A 1C, ADIFF, ANEU, CMP, GFR, LIPID, VIDH, CBC #### [address] [address] BUN/Creatinine Ratio 21 ratio Normal 7-27 [facility] ([place]) Comment on above: Performed By: #### A 1C, ADIFF, ANEU, CMP, GFR, LIPID, VIDH, CBC #### [address] [address] Calcium [Mass/Vol] 9.0 mg/dL Normal 8.4-10.2 [facility] ([place]) Comment on above: Performed By: #### A 1C, ADIFF, ANEU, CMP, GFR, LIPID, VIDH, CBC #### [address] [address] Chloride [Moles/Vol] 105 mmol/L Normal 98-107 [facility] ([place]) Comment on above: Performed By: #### A 1C, ADIFF, ANEU, CMP, GFR, LIPID, VIDH, CBC #### [address] [address] CO2 [Moles/Vol] 28 mmol/L Normal 23-31 [facility] ([place]) Comment on above: Performed By: #### A 1C, ADIFF, ANEU, CMP, GFR, LIPID, VIDH, CBC #### [place] [phone] Creatinine [Mass/Vol] 0.73 mg/dL Normal 0.55-1.02 [facility] ([place]) Comment on above: Performed By: #### A 1C, ADIFF, ANEU, CMP, GFR, LIPID, VIDH, CBC #### [place] [address] Electrolyte Balance 10.0 mEq/L Normal 4.0-15.0 [facility] ([place]) Comment on above: Performed By: #### A 1C, ADIFF, ANEU, CMP, GFR, LIPID, VIDH, CBC #### [place] [phone] Globulin 3.2 G/dL Normal [facility] ([place]) Comment on above: Performed By: #### A 1C, ADIFF, ANEU, CMP, GFR, LIPID, VIDH, CBC #### [place] [address] Glucose [Mass/Vol] 91 mg/dL Normal 83-110 [facility] ([place]) Comment on above: Performed By: #### A 1C, ADIFF, ANEU, CMP, GFR, LIPID, VIDH, CBC #### [place] [address] Potassium [Moles/Vol] 4.0 mmol/L Normal 3.5-5.1 [facility] ([place]) Comment on above: Performed By: #### A 1C, ADIFF, ANEU, CMP, GFR, LIPID, VIDH, CBC #### [place] [phone] Sodium [Moles/Vol] 143 mmol/L Normal 136-145 [facility] ([place]) Comment on above: Performed By: #### A 1C, ADIFF, ANEU, CMP, GFR, LIPID, VIDH, CBC #### [place] [address] Total Protein 7.1 G/dL Normal 6.4-8.2 [facility] ([place]) Comment on above: Performed By: #### A 1C, ADIFF, ANEU, CMP, GFR, LIPID, VIDH, CBC #### [address] [address] Urea nitrogen [Mass/Vol] 15 mg/dL Normal 7-18 [facility] ([place]) Comment on above: Performed By: #### A 1C, ADIFF, ANEU, CMP, GFR, LIPID, VIDH, CBC #### [address] [address] LIPIDon 10-12-2022 Cholesterol [Mass/Vol] 214 mg/dL High 0-200 [facility] ([place]) Comment on above: Result Comment: Chol esterol Reference Interval: Less than 200 Desirable 200-239 Borderline high risk 240 and above High risk Performed By: #### A 1C, ADIFF, ANEU, CMP, GFR, LIPID, VIDH, CBC #### [address] [address] Cholesterol in HDL [Mass/Vol] 92 mg/dL High 40-60 [facility] ([place]) Comment on above: Performed By: #### A 1C, ADIFF, ANEU, CMP, GFR, LIPID, VIDH, CBC #### [address] [address] Cholesterol in LDL [Mass/Vol] 99 mg/dL Normal 0-130 [facility] ([place]) Comment on above: Performed By: #### A 1C, ADIFF, ANEU, CMP, GFR, LIPID, VIDH, CBC #### [address] [address] Triglyceride [Mass/Vol] 117 mg/dL Normal 0-150 [facility] ([place]) Comment on above: Result Comment: Trig lyceride Reference Interval: Less than 150 Normal 150-199 Borderline high risk 200-499 High risk 500 or higher Very high risk Performed By: #### A 1C, ADIFF, ANEU, CMP, GFR, LIPID, VIDH, CBC #### [address] [address] VIDHon 10-12-2022 Vit. D 25-Hydroxy 33.5 ng/mL Normal [facility] ([place]) Comment on above: Result Comment: Inte rpretive Values Based on Total 25(OH) Vitamin D: Deficient <20 ng/mL Insufficient 20 - <30 ng/mL Sufficient 30-100 ng/mL Performed By: #### A 1C, ADIFF, ANEU, CMP, GFR, LIPID, VIDH, CBC #### [facility] [address] [place] [address] CEFTRIAXONE:SUSC:PT:ISOLATE: ORDQN:MICon 10-03-2021 cefTRIAXone ROSI [Susc] >100,000 cfu/ml Escherichia coli [facility] LABORATORYOrdered By: Toña Pat on 10-03-2021 Albumin BCP dye [Mass/Vol] 3.1 G/dL Invalid Interpretation Code 3.4 - 4.8 G/dL AO ADM SS Albumin/Globulin [Mass ratio] 0.8 {ratio} Invalid Interpretation Code 1.1 - 2.5 ratio AO ADM SS ALP [Catalytic activity/Vol] 180 U/L Invalid Interpretation Code 40 - 135 U/L AO ADM SS ALT With P-5'-P [Catalytic activity/Vol] 29 U/L Invalid Interpretation Code 14 - 59 U/L AO ADM SS Amylase [Catalytic activity/Vol] 46 U/L Invalid Interpretation Code 25 - 115 U/L AO ADM SS AST With P-5'-P [Catalytic activity/Vol] 22 U/L Invalid Interpretation Code 10 - 40 U/L AO ADM SS Bilirubin [Mass/Vol] 0.5 mg/dL Invalid Interpretation Code 0.2 - 1.0 mg/dL AO ADM SS Calcium [Mass/Vol] 8.6 mg/dL Invalid Interpretation Code 8.4 - 10.2 mg/dL AO ADM SS Chloride [Moles/Vol] 95 mmol/L Invalid Interpretation Code 98 - 107 mmol/L AO ADM SS CO2 [Moles/Vol] 29 mmol/L Invalid Interpretation Code 23 - 31 mmol/L AO ADM SS Creatinine [Mass/Vol] 0.89 mg/dL Invalid Interpretation Code 0.55 - 1.02 mg/dL AO ADM SS Electrolyte Balance 10.0 mEq/L Invalid Interpretation Code 4.0 - 15.0 mEq/L AO ADM SS Globulin 4.1 G/dL Invalid Interpretation Code AO ADM SS Glucose [Mass/Vol] 107 mg/dL Invalid Interpretation Code 83 - 110 mg/dL AO ADM SS Lipase [Catalytic activity/Vol] 106 U/L Invalid Interpretation Code 73 - 393 U/L AO ADM SS Potassium [Moles/Vol] 4.2 mmol/L Invalid Interpretation Code 3.5 - 5.1 mmol/L AO ADM SS Protein [Mass/Vol] 7.2 G/dL Invalid Interpretation Code 6.4 - 8.2 G/dL AO ADM SS Sodium [Moles/Vol] 134 mmol/L Invalid Interpretation Code 136 - 145 mmol/L AO ADM SS Urea nitrogen [Mass/Vol] 14 mg/dL Invalid Interpretation Code 7 - 18 mg/dL AO ADM SS Urea nitrogen/Creatinine [Mass ratio] 16 ratio Invalid Interpretation Code 7 - 27 ratio AO ADM SS LABORATORYOrdered By: Meagan Moncada on 10-03-2021 Basophil, Absolute 0.0 103/mcL Invalid Interpretation Code 0.0 - 0.2 10^3/mcL AO Workflow SS Basophils/100 WBC (Bld) 0.3 % Invalid Interpretation Code 0.0 - 2.5 % AO Workflow SS Eosinophil, Absolute 0.0 103/mcL Invalid Interpretation Code 0.0 - 0.4 10^3/mcL AO Workflow SS Eosinophils/100 WBC (Bld) 0.1 % Invalid Interpretation Code 0.0 - 7.0 % AO Workflow SS Erythrocyte distribution width (RBC) [Ratio] 12.4 % Invalid Interpretation Code 11.5 - 14.5 % AO Workflow SS Hematocrit (Bld) [Volume fraction] 36.1 % Invalid Interpretation Code 37.0 - 47.0 % AO Workflow SS Hemoglobin (Bld) [Mass/Vol] 12.1 G/dL Invalid Interpretation Code 12.0 - 16.0 G/dL AO Workflow SS Lymphocyte, Absolute 1.5 103/mcL Invalid Interpretation Code 0.8 - 3.9 10^3/mcL AO Workflow SS Lymphocytes/100 WBC (Bld) 13.5 % Invalid Interpretation Code 10.0 - 50.0 % AO Workflow SS MCH (RBC) [Entitic mass] 29.6 pg Invalid Interpretation Code 27.0 - 31.2 pg AO Workflow SS MCHC 33.6 G/dL Invalid Interpretation Code 33.0 - 37.0 G/dL AO Workflow SS MCV (RBC) [Entitic vol] 88.1 fL Invalid Interpretation Code 80.0 - 94.0 fL AO Workflow SS Monocyte, Absolute 1.1 103/mcL Invalid Interpretation Code 0.2 - 1.0 10^3/mcL AO Workflow SS Monocytes/100 WBC (Bld) 9.5 % Invalid Interpretation Code 1.7 - 13.0 % AO Workflow SS Neutrophil, Absolute 8.5 103/mcL Invalid Interpretation Code 2.9 - 6.2 10^3/mcL AO Workflow SS Neutrophils/100 WBC (Bld) 76.6 % Invalid Interpretation Code 37.0 - 80.0 % AO Workflow SS Platelet mean volume (Bld) [Entitic vol] 7.7 fL Invalid Interpretation Code 7.4 - 10.4 fL AO Workflow SS Platelets (Bld) [#/Vol] 361 103/mcL Invalid Interpretation Code 130 - 400 10^3/mcL AO Workflow SS RBC (Bld) [#/Vol] 4.09 106/mcL Invalid Interpretation Code 4.20 - 5.40 10^6/mcL AO Workflow SS WBC 11.1 103/mcL Invalid Interpretation Code 4.6 - 10.8 10^3/mcL AO Workflow SS LABORATORYOrdered By: SYSTEM SYSTEM on 10-03-2021 GFR 75 ml/min/1.73sqm Invalid Interpretation Code AO Chemistry S GFR Non- 62 ml/min/1.73sqm Invalid Interpretation Code AO Chemistry S cefTRIAXone ROSI [Susc]on Escherichia coli Escherichia coli [facility] Surgical Pathologyon 019 Surgical Pathology [id number] [facility] PATHOLOGY AND LABORATORY MEDICINE [address] [place], [place] [id number] FINAL SURGICAL PATHOLOGY REPORT NAME: KARRIE CARTER : 1945 72 Y F BILLING NO.: [id number] LOCATION: [address] [address] PROCEDURE 03/15/2018 DATE: SURGEON: YAIMA WHITMAN M.D. RECEIVED 03/15/2018 DATE: ATTENDING: YAIMA WHITMAN M.D. REPORT DATE: 03/19/2018 COPIES TO: DIAGNOSIS: GALLBLADDER, CHOLECYSTECTOMY - MILD CHRONIC CHOLECYSTITIS. BINDU/JEREMIES1 Signature> S ROHINI WILLSON M.D. CLINICAL INFORMATION: Cholelithiasis SPECIMEN: GALLBLADDER GROSS DESCRIPTION: Gallbladder Received in formalin is an intact gallbladder measuring 9 x 3 x 2.5 cm. The serosal surface is reddish-claudio with adhesions. Upon transection, the lumen is filled with thick, green bile. The mucosa of the gallbladder is dark green and bile-stained. The wall of the gallbladder averages 0.1 cm in thickness and contains no nodules. No calculi are identified within the cystic duct, gallbladder, or within the container. Scutcher Tender sections are submitted in a single cassette. (bits ss, 1) JCK/[id number] Disclaimer: The following statement applies to all immunohistochemistry, in situ hybridization, molecular studies, and immunofluorescence testing. The use of one or more reagents in the above tests is regulated as an analyte specific reagent (ASR). These tests were developed and their performance characteristics determined by the clinical laboratories of [facility]. They have not been cleared by the [place] Food and Drug Administration (FDA). The FDA has determined that such clearance or approval is not necessary. All the above immunostains were performed on paraffin embedded tissue. Appropriate positive and negative controls (where applicable) were run in parallel with the patient's specimen; these controls showed expected staining pattern, with acceptable intensity of staining. Immunohistochemical assays have not been validated on decalcified tissues. Results should be interpreted with caution given the raised possibility of false negativity on decalcified specimens. Professional Performing Location: [facility] [address] [place] [address]. DEPARTMENT OF PATHOLOGY AND LABORATORY MEDICINE [place], [place] [address] Normal [facility] Hemoglobin AND Hematocriton 03-08-2018 Hematocrit Volume Fraction (Bld) 43.5 % Normal 35.0-47.0 [facility] Comment on above: Performed By: #### H VENICE BMP3M #### [address] Hemoglobin mass conc (Bld) 14.2 g/dL Normal 11.7-16.0 [facility] Comment on above: Performed By: #### Yfn GHCT BMP3M #### [address] Hepatic Functionon 201 9 ALP enzyme act/vol 107 U/L Normal 38-126 [facility] Comment on above: Performed By: #### Yfn GHCT BMP3M #### [address] ALT enzyme act/vol 34 U/L Normal 13-69 [facility] Comment on above: Performed By: #### H GHCT BMP3M #### [address] AST enzyme act/vol 30 U/L Normal 15-46 [facility] Comment on above: Performed By: #### H GHCT BMP3M #### [address] Bilirubin mass conc 0.4 mg/dL Normal 0.2-1.3 [facility] Comment on above: Performed By: #### H GHCT BMP3M #### [address] Bilirubin.direct mass conc 0.0 mg/dL Normal 0.0-0.3 [facility] Comment on above: Performed By: #### H GHCT, BMP3M #### [place] [address] [address] [place], [place] Protein mass conc 7.8 g/dL Normal 6.3-8.2 [facility] Comment on above: Performed By: #### H GHCT, BMP3M #### [place] [address] [address] [place], [place] Albumin mass conc 4.9 g/dL Normal 3.5-5.0 [facility] Comment on above: Performed By: #### H GHCT, BMP3M #### [place] [address] [address] [place], [place] Basic Metabolic Panelon 10-2 Anion gap molar conc 13 Normal [facility] Comment on above: Performed By: #### H EMDF, BMP3M, MG3, PHOS3 #### [place] [address] [address] [place], [place] Calcium mass conc 9.2 mg/dL Normal 8.4-10.4 [facility] Comment on above: Performed By: #### H EMDF, BMP3M, MG3, PHOS3 #### [place] [address] [address] [place], [place] CO2 molar conc 24 mmol/L Normal 22-30 [facility] Comment on above: Performed By: #### H EMDF, BMP3M, MG3, PHOS3 #### [place] [address] [address] [place], [place] Glucose mass conc 154 mg/dL High 70-100 [facility] Comment on above: Performed By: #### H EMDF, BMP3M, MG3, PHOS3 #### [place] [address] [address] [place], [place] Urea nitrogen mass conc 15 mg/dL Normal 7-20 [facility] Comment on above: Performed By: #### H EMDF, BMP3M, MG3, PHOS3 #### [place] [address] [address] [place], [place] Creatinine mass conc 0.63 mg/dL Normal 0.52-1.25 [facility] Comment on above: Performed By: #### H EMDF, BMP3M, MG3, PHOS3 #### [place] [address] [address] [place], [place] GFR/1.73 sq M predicted among blacks MDRD vol rate/area (S/P/Bld) mL/min/{1.73_m2} Normal >60 [facility] Comment on above: Performed By: #### H EMDF, BMP3M, MG3, PHOS3 #### [place] [address] [address] [place], [place] GFR/1.73 sq M predicted among non-blacks MDRD vol rate/area (S/P/Bld) mL/min/{1.73_m2} Normal >60 [facility] Comment on above: Result Comment: Sour ce- MDRD equation with creatinine calibration to IDMS(NKDEP) eGFR not recommended for drug dose adjustment Performed By: #### H EMDF, BMP3M, MG3, PHOS3 #### [address] [place], [place] Potassium molar conc 4.4 mmol/L Normal 3.5-5.1 [facility] Comment on above: Performed By: #### H EMDF, BMP3M, MG3, PHOS3 #### [place] [address] [address] [place], [place] Chloride molar conc 102 mmol/L Normal 98-107 [facility] Comment on above: Performed By: #### H EMDF, BMP3M, MG3, PHOS3 #### [address] Sodium molar conc 139 mmol/L Normal 137-145 [facility] Comment on above: Performed By: #### H EMDF, BMP3M, MG3, PHOS3 #### [place] [address] [place], [place] Hemogram w/ Autodiffon 11-29 Abs Baso Cnt 0.0 10*3/uL Normal 0.0-0.2 [facility] Comment on above: Performed By: #### H EMDF, BMP3M, MG3, PHOS3 #### [address] Abs Neutrophile Cnt 9.1 10*3/uL High 1.8-7.0 [facility] Comment on above: Performed By: #### H EMDF, BMP3M, MG3, PHOS3 #### [place] [address] [place], [place] Basophils/100 WBC (Bld) 0.0 % Normal 0.0-2.0 [facility] Comment on above: Performed By: #### H EMDF, BMP3M, MG3, PHOS3 #### [address] Eosinophils #/vol (Bld) 0.0 10*3/uL Normal 0.0-0.5 [facility] Comment on above: Performed By: #### H EMDF, BMP3M, MG3, PHOS3 #### [address] Eosinophils/100 WBC (Bld) 0.0 % Low 1.0-6.0 [facility] Comment on above: Performed By: #### H EMDF, BMP3M, MG3, PHOS3 #### [address] Erythrocyte distribution width Ratio (RBC) 14.6 % High 11.5-14.5 [facility] Comment on above: Performed By: #### H EMDF, BMP3M, MG3, PHOS3 #### [address] Granulocytes/100 WBC (Bld) 89.3 % High 40.0-80.0 [facility] Comment on above: Performed By: #### H EMDF, BMP3M, MG3, PHOS3 #### [address] Hematocrit Volume Fraction (Bld) 35.0 % Normal 35.0-47.0 [facility] Comment on above: Performed By: #### H EMDF, BMP3M, MG3, PHOS3 #### [place] [address] [place], [place] Hemoglobin mass conc (Bld) 11.8 g/dL Normal 11.7-16.0 [facility] Comment on above: Performed By: #### H EMDF, BMP3M, MG3, PHOS3 #### [address] [place], [place] Lymphocytes #/vol (Bld) 0.8 10*3/uL Low 1.0-4.3 [facility] Comment on above: Performed By: #### H EMDF, BMP3M, MG3, PHOS3 #### [address] Lymphocytes/100 WBC (Bld) 7.8 % Low 20.0-40.0 [facility] Comment on above: Performed By: #### H EMDF, BMP3M, MG3, PHOS3 #### [address] MCH Entitic mass (RBC) 28.3 pg Normal 26.0-34.0 [facility] Comment on above: Performed By: #### H EMDF, BMP3M, MG3, PHOS3 #### [address] MCHC mass conc (RBC) 33.7 % Normal 32.0-36.0 [facility] Comment on above: Performed By: #### H EMDF, BMP3M, MG3, PHOS3 #### [address] MCV Entitic volume (RBC) 84.1 fL Normal 79.0-98.0 [facility] Comment on above: Performed By: #### H EMDF, BMP3M, MG3, PHOS3 #### [address] Monocytes #/vol (Bld) 0.3 10*3/uL Normal 0.0-0.8 [facility] Comment on above: Performed By: #### H EMDF, BMP3M, MG3, PHOS3 #### [place] [address] [address] [place], [place] Monocytes/100 WBC (Bld) 2.9 % Normal 2.0-10.0 [facility] Comment on above: Performed By: #### H EMDF, BMP3M, MG3, PHOS3 #### [address] [place], [place] Platelet mean volume Entitic volume (Bld) 7.8 fL Normal 7.4-10.4 [facility] Comment on above: Performed By: #### H EMDF, BMP3M, MG3, PHOS3 #### [address] Platelets #/vol (Bld) 237 10*3/uL Normal 140-440 [facility] Comment on above: Performed By: #### H EMDF, BMP3M, MG3, PHOS3 #### [address] [place], [place] RBC #/vol (Bld) 4.16 10*6/uL Normal 3.80-5.20 [facility] Comment on above: Performed By: #### H EMDF, BMP3M, MG3, PHOS3 #### [place] [address] [address] [place], [place] WBC #/vol (Bld) 10.2 10*3/uL Normal 3.6-10.7 [facility] Comment on above: Performed By: #### H EMDF, BMP3M, MG3, PHOS3 #### [address] [place], [place] Magnesiumon 11-29-2017 Magnesium mass conc 1.7 mg/dL Normal 1.6-2.3 [facility] Comment on above: Performed By: #### H EMDF, BMP3M, MG3, PHOS3 #### [address] [address] Phosphoruson 11-29-2017 Phosphate mass conc 3.2 mg/dL Normal 2.5-4.5 [facility] Comment on above: Performed By: #### H EMDF, BMP3M, MG3, PHOS3 #### [facility] [address] [facility] [address] RF UGI w/o KUB w/ or w/o Del ay Flmon 11-29-2017 RF UGI w/o KUB w/ or w/o Delay Flm Patient Name: KARRIE CARTER Fluoroscopy Exam Date/Time 11/29/2017 12:04:26 EDT Exam RF UGI w/o KUB and w/ or w/o Delay Flm Ordering Physician MD TRIANA NICHOLAS Accession Number [id number] CTP4 Codes 47737 () Reason For Exam bariatric surgery. gastrograffin. Report GASTROGRAFIN UPPER GI SERIES CLINICAL INDICATIONS: Postop day one Kartik fundoplication. Evaluate for leak. FLUOROSCOPY TIME: 0.7 minutes.. 24 fluoroscopic spot images were obtained. FINDINGS: There is marked narrowing of the distal end of the esophagus and deformity of the gastric fundus consistent with post surgical changes in from Kartik fundoplication. There is no contrast extravasation or obstruction. The remainder of the esophagus is otherwise unremarkable. There is limited visualization of the stomach that shows contrast emptying into the small bowel. There are surgical clips in the upper abdomen. There is a small amount of free air seen underneath the right hemidiaphragm. There is left basilar atelectasis. IMPRESSION: Changes consistent with Kartik fundoplication. No extravasation or obstruction. Left basilar atelectasis. Report Dictated on Final Dictated: 11/29/2017 12:02 pm Dictating Physician: MD BRADSHAW BRIAN Signed Date and Time: 11/29/2017 12:56 pm Signed by: MD BRADSHAW BRIAN Transcribed Date and Time: 11/29/2017 12:10 Normal [facility] TS GELon 11-28-2017 TS GEL ABO Group: O Rh, Gel: POS Antibody Screen Gel: NEG Normal [facility] Comment on above: Performed By: #### T SGL #### [facility] [address] [place] [address] Basic Metabolic Panelon 11-05 Calcium mass conc 9.7 mg/dL Normal 8.4-10.4 [facility] Comment on above: Performed By: #### H GHCT, BMP3M #### [facility] [address] [place] [address] Anion gap molar conc 8 Normal [facility] Comment on above: Performed By: #### H GHCT, BMP3M #### [facility] [address] [place] [address] CO2 molar conc 27 mmol/L Normal 22-30 [facility] Comment on above: Performed By: #### H GHCT, BMP3M #### [place] [address] [place] [address] Creatinine mass conc 0.63 mg/dL Normal 0.52-1.25 [facility] Comment on above: Performed By: #### H GHCT, BMP3M #### [place] [address] [place] [address] GFR/1.73 sq M predicted among blacks MDRD vol rate/area (S/P/Bld) mL/min/{1.73_m2} Normal >60 [facility] Comment on above: Performed By: #### H GHCT, BMP3M #### [facility] [address] [place] [address] GFR/1.73 sq M predicted among non-blacks MDRD vol rate/area (S/P/Bld) mL/min/{1.73_m2} Normal >60 [facility] Comment on above: Result Comment: Sour ce- MDRD equation with creatinine calibration to IDMS(NKDEP) eGFR not recommended for drug dose adjustment Performed By: #### H GHCT, BMP3M #### [facility] [address] [place] [address] Glucose mass conc 84 mg/dL Normal 70-100 [facility] Comment on above: Performed By: #### H GHCT, BMP3M #### [facility] [address] [place] [address] Urea nitrogen mass conc 17 mg/dL Normal 7-20 [facility] Comment on above: Performed By: #### H VENICE BMP3M #### [facility] [address] [place] [address] Chloride molar conc 106 mmol/L Normal 98-107 [facility] [facility] Comment on above: Performed By: #### H VENICE BMP3M #### [address] [place] [address] Potassium molar conc 4.4 mmol/L Normal 3.5-5.1 [facility] Comment on above: Performed By: #### H VENICE BMP3M #### [address] [place] [address] Sodium molar conc 141 mmol/L Normal 137-145 [facility] Comment on above: Performed By: #### H VENICE BMP3M #### [address] [place] [address] Hemoglobin AND Hematocriton 11-21-2017 Hematocrit Volume Fraction (Bld) 41.2 % Normal 35.0-47.0 [facility] Comment on above: Performed By: #### H VENICE BMP3M #### [address] [place] [address] Hemoglobin mass conc (Bld) 13.3 g/dL Normal 11.7-16.0 [facility] Comment on above: Performed By: #### H VENICE BMP3M #### [address] [place] [address] CNOVon 02-12-2017 CNOV Office Visit ([facility]) KARRIE [id number]) 1945 FDate Time Provider Department02/12/17 7:45 PM ELADIO CLARK) [facility] During your visit today, we recorded the following information about you: Temperature Pulse Respiration Blood pressure 99.9 degrees 102/minute 18/minute 132/84 Weight 56.2 kgEladio Rosa SAMANTHA Clark 02/12/2017 8:13 PM [id number] yo female presents with a sudden onset of flu-like symptoms: fever, chills,nausea, body aches and ROMERO with in the past 24 hours.Review of SystemsConstitutional: Positive for chills, fever and malaise/fatigue.Muscul oskeletal: Positive for myalgias.Neurological: Positive for headaches.All other systems reviewed and are negative.PAST MEDICAL HISTORYDiagnosis Date- Family history of malignant neoplasm of gastrointestinal tract- GERD (gastroesophageal reflux disease)- Osteoporosis- Osteoporosis, unspecified- Pure hypercholesterolemia- ScoliosisPAST SURGICAL HISTORYProcedure Laterality Date- BMD BONE DENSITY 01/09- COLONOSCOP W/ OR W/O [facility] SPEC 10/22/07- COLONOSCOP W/ OR W/O [facility] SPEC 10/28/12 Colonoscopy- COLONOSCOPY 05/2002- EGD W/O OR W/BRUSH/WASH 06/17/14 EGD- LIGATE FALLOPIAN TUBEALLERGIES Penicillins; Sulfa (Sulfonamide Antibiotics)MEDICATION Snabumetone (RELAFEN) 500 mg tablet Take 1 tablet by mouth twice daily withmeals.omeprazole (PRILOSEC) 20 mg capsule Take 20 mg by mouth once daily.alendronate (FOSAMAX) 35 mg tablet Take 35 mg by mouth once each week.simvastatin(ZOCOR 20 MG TAB) Take one(1) tablet daily at bedtime.FAMILY HISTORYProblem Relation Age of Onset- Coronary Artery Disease Mother- Breast Cancer Mother- Cancer Father lung then colonSocial HistorySubstance Use Topics- Smoking status: Never Smoker- Smokeless tobacco: Never Used- Alcohol use NoPhysical ExamConstitutional: She is oriented to person, place, and time and well-developed,well-no urished, and in no distress.Ill appearing female.HENT:Right Ear: External ear normal.Left Ear: External ear normal.Nose: Nose normal.Mouth/Throat: Oropharynx is clear and moist. No oropharyngeal exudate.Eyes: Conjunctivae are normal.Neck: JVD present.Cardiovascular : Normal rate, regular rhythm, normal heart sounds and intactdistal pulses.Pulmonary/Chest : Effort normal and breath sounds normal. Stridor present.Abdominal: Soft. Bowel sounds are normal.Lymphadenopathy : She has no cervical adenopathy.Neurologica l: She is alert and oriented to person, place, and time.Skin: Skin is warm and dry. There is pallor.Psychiatric: Affect normal.Blood pressure 132/84, pulse 102, temperature 37.7 ?C (99.9 ?F), temperaturesource Tympanic, resp. rate 18, weight 56.2 kg (124 lb), SpO2 95 %.ASSESSMENT/PLAN:1. Flu-like symptoms - ICD9: 780.99, ICD10: R68.89Instructed to keep well hydrated. NSAIDs as needed for fevers. Return to theclinic if symptoms worsen.- OSELTAMIVIR 75 MG CAPSULETASHA Zapata-CReferring Provider: SELF [200]Allergies As of Date: 02/12/2017 Noted Allergy ReactionPENICILLINS 03/15/2005 7 - SwellingSULFA (SULFONAMIDE ANTIBIOTICS) 03/15/2005 2 - RashDate Reviewed: 02/12/2017Reviewed by: Jeannie Ruiz Ma - Fully AssessedReason for Visit: Cough [28] Cmt: nausea, fever, bodyaches and chills x 24 hoursPrimary Visit Diagnosis:Flu-like symptoms [R68.89]Order(s):oselt amivir (TAMIFLU) 75 mg capsuleTake 1 capsule by mouth twice daily.Disp: 10 capsuleRfl: 0Prescriptions as of 02/12/2017 Sig: NABUMETONE 500 MG TABLET Take 1 tablet by mouth twice * OMEPRAZOLE 20 MG CAPSULE,AKILA* Take 20 mg by mouth once aryan* ALENDRONATE 35 MG TABLET Take 35 mg by mouth once each* * ZOCOR 20 MG TABLET Take one(1) tablet daily at b* OSELTAMIVIR 75 MG CAPSULE Take 1 capsule by mouth twice*Problem List As Of Date 02/12/2017 Noted Resolved Osteopenia [M85.80] INVALID FOR* DIARRHEA NOS [R19.7] GASTROINTEST HEMORR NOS [K92.2] INT HEMORRHOID W/O COMPL [K64.8] FAMILY HX GI MALIGNANCY [Z80.0] UTEROVAG PROLAPS-INCOMPL [N81.2] INVALID FOR* RECTOCELE [N81.6] INVALID FOR* Postmenopausal bleeding [N95.0] INVALID FOR* GERD (gastroesophageal reflux disease) [K21.9] INVALID FOR* Hyperlipidemia [E78.5] INVALID FOR* Lumbosacral spondylosis without myelopathy [M46*INVALID FOR* Lumbago [M54.5] INVALID FOR* Scoliosis (and kyphoscoliosis), idiopathic [M41*INVALID FOR*Prescriptions ordered this encounter Disp Refills Start End OSELTAMIVIR 75 MG CAPSULE 10 c* 0 02/12/2017 Route: ORAL Sig: Take 1 capsule by mouth twice daily. Status:Closed by ELADIO CLARK PA-C on 02/12/17 [facility] PROGRESSon 02-12-2017 PROGRESS HNO ID: [id number]: Eladio Foley) AmberService: (none)Author Type: Physician AssistantType: Progress NotesFiled: 02/12/2017 8:13 PMNote Text:HPI71 yo female presents with a sudden onset of flu-like symptoms: fever,chills, nausea, body aches and ROMERO with in the past 24 hours.Review of SystemsConstitutional: Positive for chills, fever and malaise/fatigue.Muscul oskeletal: Positive for myalgias.Neurological: Positive for headaches.All other systems reviewed and are negative.PAST MEDICAL HISTORYDiagnosis Date- Family history of malignant neoplasm of gastrointestinal tract- GERD (gastroesophageal reflux disease)- Osteoporosis- Osteoporosis, unspecified- Pure hypercholesterolemia- ScoliosisPAST SURGICAL HISTORYProcedure Laterality Date- BMD BONE DENSITY 01/09- COLONOSCOP W/ OR W/O [facility] SPEC 10/22/07- COLONOSCOP W/ OR W/O [facility] SPEC 10/28/12 Colonoscopy- COLONOSCOPY 05/2002- EGD W/O OR W/BRUSH/WASH 06/17/14 EGD- LIGATE FALLOPIAN TUBEALLERGIES Penicillins; Sulfa (Sulfonamide Antibiotics)MEDICATION Snabumetone (RELAFEN) 500 mg tablet Take 1 tablet by mouth twice daily withmeals.omeprazole (PRILOSEC) 20 mg capsule Take 20 mg by mouth once daily.alendronate (FOSAMAX) 35 mg tablet Take 35 mg by mouth once each week.simvastatin(ZOCOR 20 MG TAB) Take one(1) tablet daily at bedtime.FAMILY HISTORYProblem Relation Age of Onset- Coronary Artery Disease Mother- Breast Cancer Mother- Cancer Father lung then colonSocial HistorySubstance Use Topics- Smoking status: Never Smoker- Smokeless tobacco: Never Used- Alcohol use NoPhysical ExamConstitutional: She is oriented to person, place, and time andwell-developed, well-nourished, and in no distress.Ill appearing female.HENT:Right Ear: External ear normal.Left Ear: External ear normal.Nose: Nose normal.Mouth/Throat: Oropharynx is clear and moist. No oropharyngeal exudate.Eyes: Conjunctivae are normal.Neck: JVD present.Cardiovascular : Normal rate, regular rhythm, normal heart sounds andintact distal pulses.Pulmonary/Chest : Effort normal and breath sounds normal. Stridor present.Abdominal: Soft. Bowel sounds are normal.Lymphadenopathy : She has no cervical adenopathy.Neurologica l: She is alert and oriented to person, place, and time.Skin: Skin is warm and dry. There is pallor.Psychiatric: Affect normal.Blood pressure 132/84, pulse 102, temperature 37.7 ?C (99.9 ?F),temperature source Tympanic, resp. rate 18, weight 56.2 kg (124 lb), [id number] %.ASSESSMENT/PLAN:1. Flu-like symptoms - ICD9: 780.99, ICD10: R68.89Instructed to keep well hydrated. NSAIDs as needed for fevers. Return tot clinic if symptoms worsen.- OSELTAMIVIR 75 MG [place] Clark PA-C Normal [facility] Vital Signs Date Time Vital Sign Value Performing Clinician Denise cabral 02-12-2024 11:56-0500 Body temperature 97.52 [degF] DARLENE MURPHY [facility] 02-12-2024 11:56-0500 Diastolic Blood Pressure Non-Invasive 65 mm[Hg] DARLENE LORENZ APRN-CHANDRIKA [facility] 02-12-2024 11:56-0500 Heart rate 77 /min DARLENE LORENZ CHLORINATION OPERATOR-KENO WRITER/RUNNER [facility] 02-12-2024 11:56-0500 Reason For Taking VItal Signs DARLENE LORENZ CHLORINATION OPERATOR-KENO WRITER/RUNNER [facility] 02-12-2024 11:56-0500 Respiratory rate 16 /min DARLENE LORENZ CHLORINATION OPERATOR-KENO WRITER/RUNNER [facility] 02-12-2024 11:56-0500 Systolic Blood Pressure Non-Invasive 126 mm[Hg] DARLENE LORENZ CHLORINATION OPERATOR-KENO WRITER/RUNNER [facility] 11-10-2023 11:59-0400 Body temperature 98.06 [degF] EDVIN REICHFIELD DO [facility] 11-10-2023 11:59-0400 Diastolic Blood Pressure Non-Invasive 85 mm[Hg] EDVIN REICHFIELD DO [facility] 11-10-2023 11:59-0400 Heart rate 90 /min EDVIN REICHFIELD DO [facility] 11-10-2023 11:59-0400 Respiratory rate 16 /min EDVIN REICHFIELD DO [facility] 11-10-2023 11:59-0400 Systolic Blood Pressure Non-Invasive 152 mm[Hg] EDVIN REICHFIELD DO [facility] 07-18-2023 11:06-0400 Body temperature 97.7 [degF] DARLENE LORENZ CHLORINATION OPERATOR-KENO WRITER/RUNNER [facility] 07-18-2023 11:06-0400 Diastolic Blood Pressure Non-Invasive 87 mm[Hg] DARLENE LORENZ CHLORINATION OPERATOR-KENO WRITER/RUNNER [facility] 07-18-2023 11:06-0400 Heart rate 69 /min DARLENE GERDA CHLORINATION OPERATOR-KENO WRITER/RUNNER [facility] 07-18-2023 11:06-0400 Reason For Taking VItal Signs DARLENE LORENZ CHLORINATION OPERATOR-KENO WRITER/RUNNER [facility] 07-18-2023 11:06-0400 Respiratory rate 14 /min DARLENE LORENZ CHLORINATION OPERATOR-KENO WRITER/RUNNER [facility] 07-18-2023 11:06-0400 Systolic Blood Pressure Non-Invasive 154 mm[Hg] DARLENE LORENZ CHLORINATION OPERATOR-KENO WRITER/RUNNER [facility] 01-15-2023 12:09-0500 Blood Pressure Location DARLENE LORENZ CHLORINATION OPERATOR-KENO WRITER/RUNNER [facility] 01-15-2023 12:09-0500 Blood Pressure Method DARLENE GERDA CHLORINATION OPERATOR-KENO WRITER/RUNNER [facility] 01-15-2023 12:09-0500 Body temperature 97.52 [degF] DARLENE GERDA CHLORINATION OPERATOR-KENO WRITER/RUNNER [facility] 01-15-2023 12:09-0500 Diastolic Blood Pressure Non-Invasive 83 mm[Hg] DARLENE LORENZ CHLORINATION OPERATOR-KENO WRITER/RUNNER [facility] 01-15-2023 12:09-0500 Heart rate 82 /min DARLENE LORENZ CHLORINATION OPERATOR-KENO WRITER/RUNNER [facility] 01-15-2023 12:09-0500 Reason For Taking VItal Signs DARLENE LORENZ CHLORINATION OPERATOR-KENO WRITER/RUNNER [facility] 01-15-2023 12:09-0500 Respiratory rate 18 /min DARLENE LORENZ CHLORINATION OPERATOR-KENO WRITER/RUNNER [facility] 01-15-2023 12:09050 Systolic Blood Pressure Non-Invasive 154 mm[Hg] DARLENE LORENZ CHLORINATION OPERATOR-KENO WRITER/RUNNER [facility] Encounters Encounter Date Encounter Type Care Provider Facility Start: 10-08-2024 ambulatory Darlene Lorenz NP Fa cility:[facility] Start: 08-13-2024 End: 08-13-2024 ambulatory DARLENE LORENZ CHLORINATION OPERATOR-KENO WRITER/RUNNER Facility:[facility] Start: 08-13-2024 End: 08-13-2024 SAME DAY STAY DARLENE LORENZ CHLORINATION OPERATOR-KENO WRITER/RUNNER [facility] Start: 05-18-2024 End: 05-18-2024 Emergency department patient visit DARLENE LORENZ CHLORINATION OPERATOR-KENO WRITER/RUNNER Facility:[facility] Start: 04-07-2024 End: 04-07-2024 ambulatory Darlene Lorenz HAT CONDITIONER-C Work Phone: [facility] Work Phone: Start: 04-07-2024 End: 04-07-[address] Jomar Pinto MD -Laboratory, [place] Work Phone: Start: 04-07-2024 End: 04-07-2024 ambulatory Darlene Lorenz NP Facility:[facility] Start: 04-03-2024 End: 04-03-2024 ambulatory DARLENE LORENZ CHLORINATION OPERATOR-KENO WRITER/RUNNER Facility:[facility] Start: 04-03-2024 End: 04-03-2024 Patient encounter procedure DARLENE LORENZ APRN-KENO WRITER/RUNNER [facility] Start: 04-02-2024 End: 04-02-2024 ambulatory Darlene Lorenz HAT CONDITIONER-C Work Phone: [facility] Work Phone: Start: 04-02-2024 End: 04-02-[address] Jomar Pinto MD -Laboratory, [place] Work Phone: Start: 04-02-2024 End: 04-02-2024 ambulatory Darlene Lorenz HAT CONDITIONER Facility:[facility] Start: 02-12-2024 End: 02-12-2024 ambulatory DARLENE LORENZ CHLORINATION OPERATOR-KENO WRITER/RUNNER Facility:[facility] Start: 02-12-2024 End: 02-12-2024 SAME DAY STAY DARLENE LORENZ CHLORINATION OPERATOR-KENO WRITER/RUNNER [facility] Start: 01-01-2024 End: 01-01-[address] MARY SHAFER MD Facility:[facility] Start: 01-01-2024 End: 01-01-[address] MARY SHAFER MD [facility] Start: 11-10-2023 End: 11-10-2023 [facility] Start: 07-18-2023 End: 07-18-2023 ambulatory DARLENE LORENZ CHLORINATION OPERATOR-KENO WRITER/RUNNER Facility:[facility] Start: 07-18-2023 End: 07-18-2023 SAME DAY STAY DARLENE LORENZ CHLORINATION OPERATOR-KENO WRITER/RUNNER [facility] Start: 03-26-2023 End: 03-26-2023 ambulatory DARLENE LORENZ CHLORINATION OPERATOR-KENO WRITER/RUNNER Facility:[facility] Start: 03-26-2023 End: 03-26-2023 Patient encounter procedure DARLENE LORENZ CHLORINATION OPERATOR-KENO WRITER/RUNNER [facility] Start: 01-15-2023 End: 01-15-2023 ambulatory DARLENE LORENZ CHLORINATION OPERATOR-KENO WRITER/RUNNER Facility:[facility] Start: 01-15-2023 End: 01-15-2023 SAME DAY STAY DARLENE LORENZ CHLORINATION OPERATOR-KENO WRITER/RUNNER [facility] Start: 12-22-2022 End: 12-22-2022 ambulatory DARLENE Rosa GERDA CHLORINATION OPERATOR-KENO WRITER/RUNNER Facility:[facility] Start: 12-22-2022 End: 12-22-2022 Patient encounter procedure DARLENE LORENZ CHLORINATION OPERATOR-KENO WRITER/RUNNER [facility] Start: 10-12-2022 End: 10-12-2022 ambulatory DARLENE Rosa GERDA CHLORINATION OPERATOR-KENO WRITER/RUNNER Facility:[facility] Start: 08-09-2022 End: 08-09-2022 ambulatory [facility] Work Phone: Start: 08-09-2022 End: 08-09-2022 Patient encounter procedure [facility]-Outpatient [facility] Work Phone: Start: 10-03-2021 End: 10-07-2021 Outreach Lab DARLENE LORENZ CHLORINATION OPERATOR-KENO WRITER/RUNNER [facility] Start: 10-03-2021 End: 10-03-2021 Patient encounter procedure DARLENE Rosa GERDA CHLORINATION OPERATOR-KENO WRITER/RUNNER [facility] Start: 07-25-2021 End: 07-25-2021 Patient encounter procedure [facility] Start: 03-15-2018 Patient encounter procedure [facility] Start: 03-08-2018 Encounter for other preprocedural examination [facility] Start: 03-08-2018 Patient encounter procedure [facility] Start: 11-28-2017 Patient encounter procedure [facility] Start: 11-21-2017 Patient encounter procedure [facility] Start: 02-12-2017 End: 02-13-2017 Ambulatory ELADIO A CLARK [facility] Encounter for other preprocedural examination Yaima Whitman [facility] Procedures Date Procedure Procedure Detail Performing Clinician Start: 08-09-2022 Screening mammography Start: 07-25-2021 Screening mammography Start: 03-15-2018 Cholecystectomy RICK JASEN GERDA CHLORINATION OPERATOR-KENO WRITER/RUNNER Start: 01-25-2018 Hiatal hernia (disorder) DARLENE LORENZ CHLORINATION OPERATOR-KENO WRITER/RUNNER Cataract surgery DARLENE MEDEL CHLORINATION OPERATOR-KENO WRITER/RUNNER Comment on above: 10/2019 H/O: tubal ligation FRAN LORENZ CHLORINATION OPERATOR-KENO WRITER/RUNNER Immunizations Immunization Date Immunization Notes Care Provider Maryann crook 11-05-2023 influenza virus vaccine, unspecified formulation EDVIN REGRETEL BUCIO [facility] 01-25-2023 RSV vaccine preF3, recombinant DARLENE LORENZ CHLORINATION OPERATOR-KENO WRITER/RUNNER [facility] 12-18-2022 Pneumococcal conjuga te PCV20, polysaccharide [id number] conjugate, adjuvant, PF; Translations: [Prevnar 20] DARLENE LORENZ CHLORINATION OPERATOR-KENO WRITER/RUNNER [facility] 11-03-2022 influenza virus vaccine, unspecified formulation DARLENE LORENZ CHLORINATION OPERATOR-KENO WRITER/RUNNER [facility] 11-16-2021 influenza virus vaccine, unspecified formulation DARLENE LORENZ CHLORINATION OPERATOR-KENO WRITER/RUNNER [facility] 05-25-2021 SARS-CoV-2 mRNA (yqadogfszzu-cfac-gknkh se) vaccine DARLENE LORENZ CHLORINATION OPERATOR-KENO WRITER/RUNNER [facility] 12-09-2020 influenza, high dose seasonal, preservative-free; Translations: [Fluad Quadrivalent PF ] DARLENE LORENZ CHLORINATION OPERATOR-KENO WRITER/RUNNER [facility] 11-04-2020 SARS-CoV-2 mRNA (tozinameran) vaccine DARLENEMARIA L LORENZ CHLORINATION OPERATOR-KENO WRITER/RUNNER [facility] Comment on above: Result Comment: 2020: [id number] 04-27-2020 SARS-CoV-2 mRNA (tozinameran) vaccine DARLENE LORENZ CHLORINATION OPERATOR-KENO WRITER/RUNNER [facility] Comment on above: Result Comment: 2020: [id number] 04-06-2020 SARS-CoV-2 mRNA (tozinameran) vaccine DARLENE LORENZ CHLORINATION OPERATOR-KENO WRITER/RUNNER [facility] Comment on above: Result Comment: 2020: [id number] 01-27-2020 zoster vaccine recombinant DARLENE LORENZ CHLORINATION OPERATOR-KENO WRITER/RUNNER [facility] 11-20-2019 zoster vaccine recombinant DARLENEMARIA L LORENZ CHLORINATION OPERATOR-KENO WRITER/RUNNER [facility] Comment on above: Result Comment: gem art 11-18-2019 zoster vaccine recombinant DARLENE LORENZ CHLORINATION OPERATOR-KENO WRITER/RUNNER [facility] 10-10-2019 influenza virus vaccine, unspecified formulation DARLENE LORENZ CHLORINATION OPERATOR-KENO WRITER/RUNNER [facility] 11-28-2018 influenza, injectabl e, quadrivalent, preservative free; Translations: [Fluarix PF Quadrivalent ] DARLENE LORENZ CHLORINATION OPERATOR-KENO WRITER/RUNNER [facility] 11-20-2017 influenza virus vaccine, unspecified formulation DARLENE GERDA CHLORINATION OPERATOR-KENO WRITER/RUNNER [facility] 11-29-2016 influenza virus vaccine, unspecified formulation DARLENE LORENZ CHLORINATION OPERATOR-KENO WRITER/RUNNER [facility] 12-03-2015 influenza virus vaccine, unspecified formulation DARLENE LORENZ CHLORINATION OPERATOR-KENO WRITER/RUNNER [facility] 11-30-2014 influenza virus vaccine, unspecified formulation DARLENE LORENZ CHLORINATION OPERATOR-KENO WRITER/RUNNER [facility] 11-30-2014 pneumococcal conjuga te vaccine, 13 valent DARLENE LORENZ CHLORINATION OPERATOR-KENO WRITER/RUNNER [facility] 10-06-2013 influenza virus vaccine, unspecified formulation DARLENE LORENZ CHLORINATION OPERATOR-KENO WRITER/RUNNER [facility] 11-10-2011 tetanus toxoid, redu feng diphtheria toxoid, and acellular pertussis vaccine, adsorbed DARLENE LORENZ CHLORINATION OPERATOR-KENO WRITER/RUNNER [facility] Payers Date Payer Category Payer Self-pay [id number] 2022 Medicare [id number] 2022 Private Health Insurance [facility] [id number] 2011 Medicare 2011 Private Health Insurance 1945 Unknown [id number] 2.16.8 [id number] 1945 Unknown [id number] 2.16.8 [id number] 1945 Unknown [id number] 2.16.8 40.1.437010.3.579.2.627 1945 Unknown [id number] 2.16.8 40.1.697402.3.579.2.627 1945 Unknown [id number] 2.16.8 40.1.926560.3.579.2.627 1945 Unknown [id number] 2.16. 840.1.902574.3.579.2.627 1945 Unknown [id number] 2.16.8 40.1.838815.3.579.2.7 1945 Unknown [id number] 2.16.8 40.1.674811.3.579.2.7 1945 Unknown [id number] 2.16.8 40.1.905893.3.579.2.7 1945 Unknown [id number] 2.16.8 40.1.363353.3.579.2.627 1945 Unknown [id number] 2.16.8 40.1.545573.3.579.2.627 1945 Unknown [id number] 2.16.8 40.1.350445.3.579.2.668 1945 Unknown [id number] 2.16.8 40.1.683497.3.579.2.668 1945 Unknown [id number] 2.16.8 40.1.891438.3.579.2.668 1945 Unknown [id number] 2.16.8 40.1.230206.3.579.2.668 Unknown [id number] 2.16.8 40.1.690144.3.579.2.462 Unknown [id number] 2.16.8 40.1.003878.3.579.2.462 Unknown [id number] 2.16.8 40.1.119176.3.579.2.462 Social History Date Type Detail [facility] Work Phone: Start: 1945 Sex Assigned At Female A [facility] Start: 11-28-2018 End: 11-10-2023 Tobacco smoking status Never smoked tobacco (finding) [facility] Comment on above: no tobacco smoke exp osure Sexual [facility] Start: 07-31-2018 End: 04-18-2024 Sex Female (finding) [facility] Tobacco smoking stat [facility] Unknown if ever smoked [facility] Work Phone: Functional Status Date Assessment Result Facility 11-10-2023 Functional Status Independent [facility] 11-10-2023 Functional Status Standard Safet y ID band on, Allergy Band on, Call device within reach, Bed in low position, Wheels locked, Upper/Half-Length side-rails up, Bedside Cart Locked, Safety level maintained [facility] Mental Status Date Assessment Result Facility 11-10-2023 Mental Status Orientation Oriented x 4 [facility] 11-10-2023 Mental Status [facility] 01-15-2023 Mental Status Orientation Oriented x 4 [facility] Clinical Notes 12-22-2022 to 08-13-2024 LaboratoryLaboratory Note Date & Type Note Facility 08-13-2024 Nurse Progress note patient tolerated prolia injection without signs or symptoms of a reaction Digitally Signed by Apurva Roach RN on 08/13/2024 01:16 PM [facility] 01-01-2024 Evaluation + Plan note Diagnostic Tests PendingCyclic Citrullinated Peptide 01/01/24Rheumatoid Factor 01/01/24ANA by IFA Screen 01/01/24 Future Scheduled [id number] Hemoglobin 12/21/23Complete Blood Count 12/21/23Lipid Profile 12/21/23Vitamin D Level 12/21/23Complete Metabolic Panel 12/21/23 [facility] 12-21-2023 Evaluation + Plan note Future Scheduled [id number] Hemoglobin 12/21/23Complete Blood Count 12/21/23Lipid Profile 12/21/23Vitamin D Level 12/21/23Complete Metabolic Panel 12/21/23 [facility] 11-10-2023 Hospital Discharge instructions Patient Education 11/10/2023 13:14:05 Finger Contusion Finger Contusion You have a contusion. This is also called a bruise. There is swelling and some bleeding under the skin, but no broken bones. This injury generally takes a few days to a few weeks to heal. During that time, the bruise will typically change in color from reddish, to purple-blue, to greenish-yellow, then to yellow-brown. A finger contusion may be treated with a splint or elder tape (taping the injured finger to the one next to it for support). Minor contusions likely will need no other treatment. Home care Elevate the hand to reduce pain and swelling. As much as possible, sit or lie down with the hand raised about the level of your heart. This is especially important during the first 48 hours. Ice the finger to help reduce pain and swelling. Wrap a cold source (ice pack or ice cubes in a plastic bag) in a thin towel. Apply to the bruised finger for 20 minutes every 1 to 2 hours the first day. Continue this 3 to 4 times a day until the pain and swelling goes away. If elder tape was applied and it becomes wet or dirty, change it. You may replace it with paper, plastic, or cloth tape. Before taping, put a thin strip of cotton or gauze between the fingers to absorb sweat. This will help prevent any breakdown of skin or fungal infections. Unless another medicine was prescribed, you can take acetaminophen, ibuprofen, or naproxen to control pain. (If you have chronic liver or kidney disease or ever had a stomach ulcer or gastrointestinal bleeding, talk with your doctor before using these medicines.) Follow up Follow up with your healthcare provider, or as advised. Call if you are not improving within 1 to 2 weeks. When to seek medical advice Call your healthcare provider right away if you have any of the following: Increased pain or swelling Hand or arm becomes cold, blue, numb or tingly Signs of infection: Warmth, drainage, or increased redness or pain around the bruise Inability to move the injured finger or hand Frequent bruising for unknown reasons Your fingernail becomes raised and it appears that there is blood accumulating under the nail. This may need to be drained. 7263-8325 The [employer]. [address] [place] [address]. All rights reserved. This information is not intended as a substitute for professional medical care. Always follow your healthcare professional's instructions. Follow Up Care 11/10/2023 11:53:40 With:MARCIAL ELAM MD Address: [address] [place] [address]- [phone] When:3-7 days With:Go to emergency room if symptoms worsen Address:Unknown When:2-4 days With:DARLENE LORENZ CHLORINATION OPERATOR-KENO WRITER/RUNNER Address: [address] [place] [address] [phone] When:5 to 7 days [facility] 11-10-2023 Emergency department Discharge summary Discharge Instructions Thank you for allowing [facility] to assist you with your healthcare needs. The following is important discharge information regarding your hospital visit. Diagnosis from Today's Visit Contusion of finger What to Do Next Instructions from Your Care Team X-ray here negative for any fracture or dislocation. Given the bruising likely more of a contusion certainly could be finger sprain or ligamentous injury we did discuss possible splinting after decision-making was and you have declined. Follow-up with your primary care provider. Follow-up with Dr. Sanchez of hand surgery if continued pain or decreased range of motion of your finger. Return emergency department for worsening symptoms, numbness, decreased blood flow to your finger, or any other care concern. No qualifying data available. Post Acute Orders No qualifying data available. You Need to Schedule the Following Appointments Follow Up with MARCIAL ELAM MD When:Within 3-7 days Where:[address] [facility], [place] [address]- [phone] Follow Up with Go to emergency room if symptoms worsen When:Within 2-4 days Follow Up with DARLENE LORENZ When:Within 5 to 7 days Where:[address] [facility] [place] [address]- [phone] Allergies Robitet 500 Rash penicillin sulfa drug Medications Please ask your primary doctor or pharmacist before taking any other medication not listed, including over the counter drugs, herbal medications, vitamins and or supplements as they may interact with your home medications. What How Much When Why Instructions Last Dose Unchanged cholestyramine (Prevalite Packets 4 g/ 5.5 g oral powder for reconstitution) 4 gram(s) by mouth Every day Unchanged denosumab (Prolia 60 mg/ mL subcutaneous solution) 1 Milliliter Subcutaneous Every 6 months Osteoporosis Duration: 1 Days dx: M81.0 osteoporosis Unchanged multivitamin (Multivitamin) 1 tab(s) by mouth Every day Unchanged omeprazole (omeprazole 40 mg oral delayed release capsule) 1 cap by mouth Once a day GERD (gastroesophageal reflux disease) Duration: 30 Days Please take this list to your next doctor s visit. Bring all medications you take, including over the counter medications, herbals and other supplements with you to your doctor s visit. Patients and families are reminded to discard old lists and to update any records with all medication providers or retail pharmacies. Education Materials Finger Contusion You have a contusion. This is also called a bruise. There is swelling and some bleeding under the skin, but no broken bones. This injury generally takes a few days to a few weeks to heal. During that time, the bruise will typically change in color from reddish, to purple-blue, to greenish-yellow, then to yellow-brown. A finger contusion may be treated with a splint or elder tape (taping the injured finger to the one next to it for support). Minor contusions likely will need no other treatment. Home care Elevate the hand to reduce pain and swelling. As much as possible, sit or lie down with the hand raised about the level of your heart. This is especially important during the first 48 hours. Ice the finger to help reduce pain and swelling. Wrap a cold source (ice pack or ice cubes in a plastic bag) in a thin towel. Apply to the bruised finger for 20 minutes every 1 to 2 hours the first day. Continue this 3 to 4 times a day until the pain and swelling goes away. If elder tape was applied and it becomes wet or dirty, change it. You may replace it with paper, plastic, or cloth tape. Before taping, put a thin strip of cotton or gauze between the fingers to absorb sweat. This will help prevent any breakdown of skin or fungal infections. Unless another medicine was prescribed, you can take acetaminophen, ibuprofen, or naproxen to control pain. (If you have chronic liver or kidney disease or ever had a stomach ulcer or gastrointestinal bleeding, talk with your doctor before using these medicines.) Follow up Follow up with your healthcare provider, or as advised. Call if you are not improving within 1 to 2 weeks. When to seek medical advice Call your healthcare provider right away if you have any of the following: Increased pain or swelling Hand or arm becomes cold, blue, numb or tingly Signs of infection: Warmth, drainage, or increased redness or pain around the bruise Inability to move the injured finger or hand Frequent bruising for unknown reasons Your fingernail becomes raised and it appears that there is blood accumulating under the nail. This may need to be drained. [id number] [employer]. [address] [place] [address]. All rights reserved. This information is not intended as a substitute for professional medical care. Always follow your healthcare professional's instructions. Additional Information VACCINATE! IT SAVES LIVES! Members of the community who have not yet received the COVID-19 vaccine and would like to receive it can visit one of [facility] vaccine clinics. There are many vaccine clinic locations within the [facility] [address]. For locations and available times, please visit [email or web address].[place]. [email or web address] It is important to note that some COVID mobile vaccine clinics are held outdoors and may be canceled in rainy or stormy conditions. To learn more about pediatric vaccinations (ages 5-11), we invite you to visit the [facility] webpage. https://www.[facility].org/p ages/8935-Bxmvn-Wesfctcqtvx-Freq tetuxs-Ubpan-Vtglgwesy.html To learn more about the COVID-19 vaccine, we invite you to visit the CDC website for a list of frequently asked questions. https://www.cdc.gov/coronavirus/ 2019-ncov/vaccines/faq.html [facility] Patient Portal Access Instructions: Stay connected with your healthcare team and access your personal medical information anytime with the [facility] Patient Portal. If you would like a full copy of your medical records please contact the [facility] Medical Records Department Sunday through Sunday between 8a.m. and 4:30p.m. Please follow the directions below to access the portal: 1.Access the email account you provided upon registration to the [facility].2.Look for an invitation email from [facility].3.Open the email and access the invitation link: Accept Invitation to [facility]4.Fill in the required tierney to create your account. Sign into [email or web address] with your username and password that you created in the above steps to stay up to date. You can then view a summary of results, a summary of your visits, and the ability to download your summaries to your computer or send the information securely to a physician. Remember that your healthcare information is confidential, so carefully consider who you will allow to register on the [facility] Patient Portal for access to your information. You can also access the [facility] Patient Portal on the [employer]. Simply click on Health Records under Health Data and then click on the [employer] logo. HOW TO SAFELY DISPOSE OF PRESCRIPTION MEDICATIONS Please use one of the following methods to safely dispose of your unused medications. 1.Use a drug disposal kit: the drug disposal pouch allows you to safely discard your old and unused drugs. Ask your nurse to give you one when you are discharged.2.Visit a local take-back location: Many local pharmacies and police departments have programs that collect old and unwanted prescription drugs. Call your local pharmacy or go to http://bit.ly/6S4Ka2e to find one close to you.3.Make use of household items: Use cat litter or old coffee grounds to dispose medications if other options are not available. Mix your drugs with these household products, seal them in an airtight container and throw it into the garbage. Call [facility]: [phone] to be sure your drugs can be disposed of in this way. Some medicines may require a different approach.4.Never flush your medications down the toilet. IF YOU HAVE BEEN PRESCRIBED AN OPIOIDS FOR PAIN If you have been prescribed an opioid (such as hydrocodone, oxycodone or morphine), it is critical to understand the possible side effects and risks of opioid pain medications. Even when taken as directed, opioids can have several side effects including: Tolerance, meaning you might need to take more of a medication for the same pain relief. Nausea, vomiting and/or constipation. Sleepiness, dizziness, dry mouth, confusion, depression or itching. Physical dependence, meaning you have withdrawal symptoms when a medication is stopped ? this can develop within a few days. KNOW YOUR RESPONSIBILITIES It is important to know exactly how much and how often to take the opioid pain medications you are prescribed. Never take opioids in higher amounts or more often than prescribed. Do not combine opioids with alcohol or other drugs that cause drowsiness, such as benzodiazepines, also known as benzos, including diazepam and alprazolam, muscle relaxants or sleep aids. Never sell or share prescription opioids. This is illegal. Store opioids in a secure place and out of reach of others (including children, family, friends and visitors). The last page(s) of this document has been signed and retained as a CHART COPY Signatures Patient Education Materials Finger Contusion Medication Leaflets My discharge plan and instructions have been reviewed and explained to me and IABDON LINDA C understand my current condition and have read and understand these discharge instructions. I have received a written copy of the plan/instructions. If I have questions, I am aware that I should contact my doctor. Patient/Scutcher Tender Signature: Date/Time: Relationship to Patient: Witness Name/Signature: Date/Time: [facility] [place] [facility] 11-10-2023 Note ORIGINAL EXAMINATION: THREE XRAY VIEWS OF THE RIGHT FINGERS 11/10/2023 12:55 pm COMPARISON: None. HISTORY: ORDERING SYSTEM PROVIDED HISTORY: Reason for Exam: pain FINDINGS: No visible fracture dislocation. There is soft tissue swelling at the dorsal aspect of the proximal interphalangeal joint of the 3rd digit, the associated joint spaces maintained. There is severe 1st carpal metacarpal joint degenerative change. IMPRESSION: 3rd digit soft tissue swelling with no visible associated joint abnormality. 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 Interpreted by: Rohini Pennington MD Preliminary Report By: Rohini Pennington MD Electronically signed By Rohini Pennington MD Dictated Date: 11/10/2023 1:01:49 PM Prelim Date: 11/10/2023 1:03:25 PM Sign Date: 11/10/2023 1:03:25 PM Ordering Provider: YAIMA GOOD [facility] 07-18-2023 Nurse Progress note patient tolerated prolia injection without signs or symptoms of a reaction Digitally Signed by Apurva Roach RN on 07/18/2023 11:20 AM [facility] 12-22-2022 Note ORIGINAL EXAMINATION: BONE DENSITOMETRY 12/22/2022 1:45 pm TECHNIQUE: A bone density dual x-ray absorptiometry (DEXA) scan was performed of the lumbar spine and left hip on a Hologic system. COMPARISON: 01/26/2020. HISTORY: ORDERING SYSTEM PROVIDED HISTORY: Reason for Exam: Osteoporosis Screening Postmenopausal. FINDINGS: BMD (g/cm2) Lumbar Spine L1-L4: 0.901. T Score Lumbar Spine L1-L4: -1.3 BMD (g/cm2) Left Femoral Neck: 0.506. T Score Left Femoral Neck: -3.1 BMD (g/cm2) Left Hip: 0.714. T Score Left Hip: -1.9 BMD Change from previous Hip: -5.7% BMD Change from previous Lumbar spine: 0% IMPRESSION: Osteoporosis by WHO criteria. *By the World Health Organization criteria: (Comparing with young normal sex matched population) - Normal: T-score at or above -1 SD (standard deviation) - Osteopenia: T-score between -1 and -2.5 SD - Osteoporosis: T-score at or below -2.5 SD I have personally reviewed the images of this examination and agree with the resident's findings and interpretation. Interpreted by: Chayito Dunbar Preliminary Report By: Philip Cota Electronically signed By Chayito Dunbar Dictated Date: 12/22/2022 2:44:07 PM Prelim Date: 12/22/2022 4:05:58 PM Sign Date: 12/22/2022 4:05:58 PM Ordering Provider: DARLENE LORENZ [facility] Evaluation + Plan note No data available for this section [facility] Evaluation + Plan note Future Appointments Appointment Date:12/21/2023 09:00:00 AM Scheduled Provider:DARLENE LORENZ Location:[facility] Appointment Type:PC Wellness Medicare [facility] Evaluation note No assessment inform ation available [facility] Work Phone: Hospital Discharge instructions No data available for this section [facility] Progress note No data available for this section [facility] Reason for referral (narrative) No reason for referral information available [facility] Work Phone: Summary Purpose Family History No Family History Records FoundNo Family History Records Found No data available for this section No data available for this section No data available for this section No data available for this section No Family History Records Found No data available for this section No data available for this section No data available for this section No data available for this section No data available for this section No Family History Records FoundNo Family History Records Found Advance Directives No Advanced Directives Records FoundNo Advanced Directives Records FoundNo Advanced Directives Records FoundNo Advanced Directives Records FoundNo Advanced Directives Records Found Procedure Findings Note OPERATIVE NOTE DATE OF PROCE DURE: 11/28/2017 SURGEON: Yaima Whitman ASSISTANT READING TEACHER: Alberto Triana MD PREOPERATIVE DIAGNOSIS: ? Large Symptomatic Hiatal Hernia ? Refractory GERD POSTOPERATIVE DIAGNOSIS: ? Large Symptomatic Hiatal Hernia ? Refractory GERD OPERATION: ? Laparoscopic Hiatal Hernia Repair with Mesh ? Laparoscopic Kartik Fundoplication ? Upper GI Endoscopy ANESTHESIA: General anesthesia ESTIMATED BLOOD LOSS: less than 50 COMPLICATIONS: None FLUIDS: 1000 cc PREOPERATIVE MEDICATIONS: Ancef, Heparin HISTORY: The patient is a 72 y.o. year old female with history of above preop diagnosis. I explained the risk, benefits, expected outcome, and alternatives to the procedure. Patient understands and is in agreement to proceed with operation. PROCEDURE: The patient was brought to the operating room and placed in supine position. After initiation of general anesthesia by the Anesthesia Department, she was placed in split-leg lithotomy with his arms extended. Care was taken to pad the (more content not included)... Note OPERATIVE NOTE DATE OF CHIVO DEMPSEY: 03/15/2018 SURGEON: Yaima Whitman ASSISTANT READING TEACHER: Yasmine Mcneal MD PREOPERATIVE DIAGNOSIS: gallstones, RUQ pain POSTOPERATIVE DIAGNOSIS: Same, plus chronic cholecystitis OPERATION: Laparoscopic cholecystectomy ANESTHESIA: General anesthesia ESTIMATED BLOOD LOSS: Minimal COMPLICATIONS: None SPECIMENS: Gallbladder PREOPERATIVE MEDICATIONS: ancef HISTORY: The patient is a 72 y.o. year old female with history of above preop diagnosis. I explained the risk, benefits, expected outcome, and alternatives to the procedure. Patient understands and is in agreement to proceed with operation. PROCEDURE: The patient was brought to the operating room and placed in supine position. After initiation of general anesthesia by the Anesthesia Department, the abdomen was prepped and draped normal sterile fashion. A Veress needle was placed in the left upper quadrant and insufflated without difficulty. We placed four 5 mm trocars, one in the left upper quadrant, 2 in the (more content not included)... Note 48 Hour Discharge Summary No te Patient ID: Karrie Carter [id number] 72 y.o. 1945 Admit date: 11/28/2017 Discharge date and time: 11/29/17 Admitting Physician: Tennille Discharge Physician: Corbin Melendez MD Consults: none Admission Diagnoses: Hiatal hernia [K44.9] BMI Classification: Normal Weight (BMI 18.5-24.9) Procedure: Laparoscopic Hiatal Hernia Repair with mesh Treatment: surgery: above procedure Pertinent Findings and Labs noted during admission: see Epic Significant Diagnostic Studies: UGI Discharge Diagnoses: Hiatal hernia [K44.9] Discharged Condition: good Homegoing Instructions: no lifting, Driving, or Strenuous exercise while taking narcotic pain medication Recommended Follow-up: Follow up with Dr. Whitman in 1-2 weeks Diet: as provided in discharge instructions for clears with moderate advancement over time - described thoroughly in discharge instructions. Discharge Medications: Karrie Carter Home Medication Instructions JEFF:[id number] Printed on:11/29/17 0665 (more content not included)... Note Physician Discharge Summary Dictating Resident: Alberto Triana Patient ID: Patient: Karrie Carter Date of : 1945 Age: 72 y.o. Sex: female Acct: [id number] Admit Date: 11/28/2017 Discharge date: 11/29/2017 Service, Admitting Physician: tennille branch Admission Diagnoses: Hiatal hernia [K44.9] Hospital Course: admit 11/28 for elective giant HH repair, fundoplication with mesh. UGI pod1 ok. Diet tolerated. Discharged in good condition. Diagnostic Studies: ugi Treatments: as above Consults: no Discharge Condition: good Primary Discharge Diagnosis: Patient Active Problem List Diagnosis ? Hiatal hernia ? Gastroesophageal reflux disease without esophagitis Disposition: Home Patient Instructions: Activity: activity as tolerated Diet: kartik diet Follow-up with tennille in 2 weeks Medications: @MEDDISCHARGE@ Signed: Alberto Triana 11/29/2017 Hospital Course Note 48 Hour Discharge Summary No te Patient ID: Karrie Carter [id number] 72 y.o. 1945 Admit date: 11/28/2017 Discharge date and time: 11/29/17 Admitting Physician: Tennille Discharge Physician: Corbin Melendez MD Consults: none Admission Diagnoses: Hiatal hernia [K44.9] BMI Classification: Normal Weight (BMI 18.5-24.9) Procedure: Laparoscopic Hiatal Hernia Repair with mesh Treatment: surgery: above procedure Pertinent Findings and Labs noted during admission: see Epic Significant Diagnostic Studies: UGI Discharge Diagnoses: Hiatal hernia [K44.9] Discharged Condition: good Homegoing Instructions: no lifting, Driving, or Strenuous exercise while taking narcotic pain medication Recommended Follow-up: Follow up with Dr. Whitman in 1-2 weeks Diet: as provided in discharge instructions for clears with moderate advancement over time - described thoroughly in discharge instructions. Discharge Medications: Karrie Carter Home Medication Instructions JEFF:[id number] Printed on:11/29/17 1304 (more content not included)... Note Physician Discharge Summary Dictating Resident: Alberto Triana Patient ID: Patient: Karrie Carter Date of : 1945 Age: 72 y.o. Sex: female Acct: [id number] Admit Date: 11/28/2017 Discharge date: 11/29/2017 Service, Admitting Physician: tennille branch Admission Diagnoses: Hiatal hernia [K44.9] Hospital Course: admit 11/28 for elective giant HH repair, fundoplication with mesh. UGI pod1 ok. Diet tolerated. Discharged in good condition. Diagnostic Studies: ugi Treatments: as above Consults: no Discharge Condition: good Primary Discharge Diagnosis: Patient Active Problem List Diagnosis ? Hiatal hernia ? Gastroesophageal reflux disease without esophagitis Disposition: Home Patient Instructions: Activity: activity as tolerated Diet: kartik diet Follow-up with tennille in 2 weeks Medications: @MEDDISCHARGE@ Signed: Alberto Triana 11/29/2017 Chief Complaint and Reason for Visit Chief Complaint SCREENING Chief Complaint Admit Date SEE ORDER April 02, 2024 10:31am STOOL DROPOFF April 07, 2024 10:1 4am Additional Source Comments INFORMATION SOURCE (unrecogn ized section and content) DATE CREATED AUTHOR 07/31/2017 [facility] DATE CREATED AUTHOR AUTHOR'S ORGANIZ ATION 03/26/2018 [facility] DATE CREATED AUTHOR AUTHOR'S ORGANIZ ATION 07/21/2023 [facility] (ID) DATE CREATED AUTHOR AUTHOR'S ORGANIZ ATION 08/17/2024 [facility] DATE CREATED AUTHOR AUTHOR'S ORGANIZ ATION 10/05/2024 [facility] Goals (unrecognized section and content) Goals may be documented in a n alternate section No data available for this section No data available for this sectionGoals may be documented in an alternate section No data available for this section No data available for this section No data available for this section No data available for this section No data available for this section No data available for this section No data available for this section No data available for this sectionGoals may be documented in an alternate sectionGoals may be documented in an alternate section No data available for this section Care Team (unrecognized sect ion and content) Care Team Related Persons Name: BENJAMIN GORDON Care Team Related Persons Name: BENJAMIN GORDON Care Teams (unrecognized sec tion and content) Team Status: Active Member Role Status Dates Dr. Justin Arriaza MD Family Provider Active Darlene Lorenz NP, HAT CONDITIONER-C Primary Care Provider Activ e Team Status: Inactive Member Role Status Dates Darlene Lorenz NP, HAT CONDITIONER-C Primary Care Provider, Attending Provider, Referring Provider Active Team Status: Inactive Member Role Status Dates Darlene Lorenz NP, HAT CONDITIONER-C Primary Care Provider Activ e Start: April 02, 2024 End: April 02, 2024 Dr. Jomar Pinto MD Attending Provider Active Start: April 02, 2024 End: April 02, 2024 Dr. Jomar Pinto MD Referring Provider Active Start: April 02, 2024 End: April 02, 2024 Team Status: Active Member Role Status Dates Darlene Lorenz NP, HAT CONDITIONER-C Primary Care Provider Activ e Start: April 07, 2024 Dr. Jomar Pinto MD Attending Provider Active Start: April 07, 2024 Dr. Jomar Pinto MD Referring Provider Active Start: April 07, 2024 Team Status: Inactive Member Role Status Dates Darlene Lorenz NP, HAT CONDITIONER-C Primary Care Provider Activ e Start: April 07, 2024 End: April 07, 2024 Dr. Jomar Pinto MD Attending Provider Active Start: April 07, 2024 End: April 07, 2024 Dr. Jomar Pinto MD Referring Provider Active Start: April 07, 2024 End: April 07, 2024 FOR RECORDS PERTAINING TO PATIENTS WHO ARE OR HAVE BEEN ENROLLED IN A CHEMICAL DEPENDENCY/SUBSTANCEABUSE PROGRAM, SOME INFORMATION MAY BE OMITTED. This clinical summary was aggregated from multiple sources. Caution should be exercised in using it in the provision of clinical care. This summary normalizes information from multiple sources, and as a consequence, information in this document may materially change the coding, format and clinical context of patient data. In addition, data may be omitted in some cases. CLINICAL DECISIONS SHOULD BE BASED ON THE PRIMARY CLINICAL RECORDS. [facility] [email or web address] [facility]. provides no warranty or guarantee of the accuracy or completeness of information in this document.
== END | disposition home or self-care (01) ==
LOC: OPBI 09:51
PROVIDERS: PCP Registered Nurse; Referring Provider Registered Nurse; Visit Provider Registered Nurse
DX: Z12.31 Encounter for screening mammogram for malignant neoplasm of breast (principal)
CPT/HCPCS: 77063; 77067